=== PATIENT | female | born 1960 | race Caucasian/White ===

== ENCOUNTER 2023-12-15 21:56 | Emergency (ER) | payer OTHER, SELFPAY ==
[2023-12-15 21:58] VITALS: BP 127/88
[2023-12-15 22:29] VITALS: BP 127/82
[2023-12-15 23:00] VITALS: BP 115/74
--- NOTE | 2023-12-15 23:00 | ED.GENMED ---
History of Present Illness
General
Chief Complaint: Abdominal Symptoms
Source: patient, previous radiology exam (Echocardiogram June 2023 showing normal EF, evidence of mitral valve repair.) and previous hospital records (Cardioversion for A-fib/flutter September 2022.)
Exam Limitations: none
Time Seen by Provider: 12/15/23 22:39
Nursing documentation reviewed up to this point in time: agreed with
Travel History
Have you had any contact with someone who has COVID-19?: No
Do you have any symptoms of coronavirus? Fever > 100 degrees, chills, cough, shortness of breath, sore throat, loss of taste or smell, muscle aches, or headache?: No
History of Present Illness
History of Present Illness:
This is a 63-year-old woman who has history of paroxysmal atrial fibrillation maintained on metoprolol and Eliquis. History of mitral regurgitation status post mitral repair 2021. She also has history of chronic diastolic CHF maintained on Lasix
20 mg daily. History of anemia, maintained on oral iron tablets and history of anxiety, maintained on fluoxetine.
She presents with nasal congestion, chest congestion that has been ongoing for the past months, intermittent harsh cough occasionally productive of clear to pale yellow phlegm. She has not had a fever but overall has not been feeling well. She has
had sporadic brief nosebleeds and intermittent nausea with 1 episode of vomiting last week. She denies hematemesis. No hematochezia, denies black nor tarry stools. 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 She has had some dyspnea on exertion, worse over the past month but no chest pain, no palpitations,
no dizziness nor lightheadedness. She denies leg pain or swelling.
She does not weigh yourself daily but believes her weight has remained stable.
She has noticed some intermittent tingling of her finger tips, seems worse after an episode of coughing, worse with activity. No associated weakness nor pain.
Past History
Past History
ED Past Medical History: Arrthythmia (Paroxysmal atrial fibrillation), CHF (Chronic diastolic CHF), HTN, Valvular disease (Mitral valve regurgitation-status post mitral valve repair March 2022), Psychiatric (Anxiety), Other (Right upper lobe lung
nodule 1.8 cm) and Other (Iron deficiency anemia)
ED Past Surgical History: Cardiac (Mitral valve regurgitation repair March 2022. A-fib cardioversion September 2022 ) and Cholecystectomy
Social History
Tobacco: Non-smoker
Alcohol: None
Drug: None
Living: with family
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
Family History
Family History: Other (Noncontributory); Negative Early CAD
Phy Exam
Physical Exam
Physical Exam:
GENERAL: 63-year-old woman appears younger than stated age, bright and alert, pleasant, appears in no acute distress. Intermittent harsh nonproductive cough is noted. Able to speak in full sentences. Afebrile.
EYE: anicteric
NECK: Supple, nontender, no meningismus, no significant adenopathy.
ENT: posterior pharynx is without injection or edema, there is mild postnasal drip noted, oral mucosa is moist. Lips are mildly dry. TMs obscured by cerumen bilaterally. Nares have moderately boggy injected turbinates, scant pearly mucopus, no
blood nor evidence of recent epistaxis.
CARDIAC: Regular rhythm, mildly tachycardic. no murmur.
LUNGS: no acute respiratory distress, scant rales left base otherwise clear to auscultation.
ABDOMEN: Soft, nondistended, without focal tenderness, normoactive BS.
NEUROLOGICAL: Alert and oriented x3, no focal neuro deficits. Motor strength is 5/5 bilaterally. Gross sensation is intact.
SKIN: Warm and dry, normal color, skin intact. No rash.
MUSCULOSKELETAL: No C/C/E. peripheral pulses are full and equal b/l. No palpable tenderness.
PSYCH: Normal and appropriate interaction.
Scores
Heart Failure Risk
Heart Failure Risk Score: Yes
History of Stroke or TIA: No
History of intubation for respiratory distress: No
Heart rate on ED arrival >/= 110: Yes
SaO2 <90% on arrival on room air: No
HR >/=110 during 3min walk test (or too ill to perform test): Yes
ECG has acute ischemic changes: No
Urea >/=12mmol/L (BUN 33.6mg/dL): No
Serum CO2>/=35mmol/L: No
Troponin I or T elevated to NH Level (0.4mg/dL): No
NT-proBNP >/=5,000ng/L (5,000pg/ml): No
HF Risk Score: 2
Admission Status: MEDIUM RISK 9.2% Consider observation or discharge to home with homecare & f/u visit to PCP/Blood Donor Recruiter Supervisor, or SNF for treatment
Course
Orders/Labs/Results
Orders:
Orders
12/15/23 22:57
Electrocardiogram (*1) Urgent
Reason for Study: Shortness of Breath
EKG- Treatment ONCE
CR Chest - 2 Views Urgent
Comment:
Reason For Exam: cough, SOB x 1 month
12/15/23 23:17
COVID-19 Antigen Urgent
Source: Nasal Swab
Complete Blood Count/With Diff Urgent
Comprehensive Metabolic Panel Urgent
Magnesium Urgent
NT-proBNP Urgent
TSH Reflex To Free T4 Urgent
Troponin I Urgent
12/15/23 23:52
Electrocardiogram (*1) Urgent
Reason for Study: Shortness of Breath
12/15/23 23:53
EKG- Treatment ONCE
12/16/23 01:13
Furosemide [Lasix] 40 mg IV NOW STA
12/16/23 01:25
Procalcitonin Urgent
PCT Algorithmm Indication: Respiratory
Abnormal Lab Results
12/15/23
23:17
WBC 4.1 L 10^3/uL
(4.8-10.8)
RBC 4.04 L 10^6/uL
(4.20-5.40)
Hgb 11.7 L g/dL
(12.0-16.0)
Hct 33.3 L %
(37.0-47.0)
Absolute Lymphs (auto) 0.7 L 10^3/uL
(1.2-3.4)
Neutrophils % 76.0 H %
(42.2-75.2)
Lymphocytes % 16.8 L %
(20.5-51.1)
BUN 20 H mg/dl
(7-17)
Glucose 134 H mg/dl
(70-99)
12/15/23 23:17
12/15/23 23:17
Vital Signs
Initial and Last Documented VS:
Initial Vital Signs
Temp Pulse Resp BP Pulse Ox
97.7 F 116 16 127/88 100
12/15/23 21:58 12/15/23 21:58 12/15/23 21:58 12/15/23 21:58 12/15/23 21:58
Last Documented Vital Signs
Temp Pulse Resp BP Pulse Ox
97.7 F 120 17 131/91 96
12/15/23 21:58 12/16/23 02:00 12/16/23 02:00 12/16/23 02:00 12/16/23 02:00
MDM/Problems Addressed
Differential Diagnosis Includes:
Concern for sinusitis, bronchitis, pneumonia. Patient is noted to be mildly tachycardic on exam thus concern for recurrent PAF/atrial tachycardia, CHF, symptomatic anemia.
She has been compliant with twice daily Eliquis, no prior history of thromboembolism, no leg pain or swelling thus PE is unlikely.
Will check EKG, labs including BNP, troponin, TSH. Will check chest x-ray.
Chronic conditions affecting care: HTN, Arrhythmia (PAF) and Other (Chronic diastolic CHF; Anemia)
*Radiology
Radiology exam reviewed: preliminary read by ED provider (Chest x-ray shows increased interstitial markings concerning for mild CHF. Stable appearing rounded nodule right upper lobe. Atelectasis left posterior lower lobe.)
*Pulse Oximetry
Patient hypoxic: no
*EKG
Interpreted by ED Provider?: Yes
Interpretation: abnormal
Comparison EKG: changes noted (Atrial fibrillation with rapid ventricular response has replaced sinus rhythm on EKG September 27, 2022.)
Rate: tachycardiac
Rhythm: a-fib
Owen: left axis deviation
Interval: long QT
QRS Pattern: normal QRS
Ischemia: non-specific ST changes
*Time Broker Interpretation
Rate: tachycardiac
Interpretation: abnormal
Rhythm: a-fib and other (Atrial fibrillation has spontaneously converted to normal sinus rhythm shortly after patient placed on nurse monitoring. There is intermittent PACs, brief runs of atrial tachycardia.)
*Critical Care Note
Total Time (30-74mins, 75-104mins- exclusive of procedures): Not Applicable
Update Note
Update Note:
EKG shows atrial fibrillation with rapid ventricular response at 120. Shortly after EKG completed however monitor shows normal sinus rhythm and repeat EKG shows normal sinus rhythm at a rate of 71, flipped T waves anterolaterally. The flipped T
waves are new compared to previous EKG September 2022.
Monitor continues to show intermittent A-fib with spontaneous conversion to normal sinus rhythm. Patient remains asymptomatic without palpitations nor sense of her heart beating rapidly.
Labs show mild neutropenia with white blood cell count of 4.1 which is actually improved from previous. Mild anemia with hemoglobin of 11.7 which is improved from previous.
Chemistries are unremarkable. Troponin is negative.
BNP is markedly elevated at 2800, much higher than previous results of 900-1980.
Chest x-ray shows some mild interstitial fullness bilaterally concerning for mild to moderate CHF. There is what appears to be linear atelectasis left lower lobe posteriorly. There is a stable appearing rounded nodule right upper lobe.
With intermittent PAF, dyspnea on exertion, elevated BNP I have significant concern for acute CHF as cause for patient's symptoms.
Will give an IV dose of Lasix now and will check procalcitonin for completeness sake. Linear atelectasis left base does not appear pneumonic process but will check procalcitonin.
12/16/2023 0235 AM
Patient diuresing well, ambulating to and from the bathroom without difficulty. States she is already feeling better.
Procalcitonin is negative.
I suspect her intermittent cough, dyspnea on exertion is all CHF related.
Monitor does continue to show intermittent A-fib versus atrial tachycardia with rapid ventricular response at 120, with spontaneous conversion back to normal sinus rhythm.
She remains hemodynamically stable.
Will continue to observe for another hour then plan for 3-minute walk test and if asymptomatic we will plan to discharge to home with prompt follow-up with cardiology/[facility] cardiology.
I have notified [facility] pin or clip fastener on-call, Dr. Loo who agrees with this plan.
Patient recommended to increase her Lasix over the next 2 days from 20 to 40 mg daily.
Will discharge with [facility]/heart failure instructions.
Return precautions discussed.
ED Attending Note
-
Portions of this chart may have been created with voice recognition software.� Occasional wrong word or��sound alike� substitutions may have occurred due to the inherent limitations of voice recognition software.
Discharge Plan
Departure
Patient Disposition: Home (Routine Discharge)
Date of Disposition: 12/16/23
Time of Disposition: 02:30
Patient with high blood pressure during this ER visit?: No
Condition: Good
Discharge Problem:
Paroxysmal atrial fibrillation with RVR, Acute on chronic diastolic CHF (congestive heart failure)
Instructions: *[facility] Heart Failure Instructions
Prescriptions:
No Action
fluoxetine 20 MG capsule
40 mg PO DAILY
Eliquis 5 mg Tablet
5 mg PO BID
ferrous sulfate [FeroSul] 325 MG tablet
325 mg PO DAILY Qty: 1 0RF
metoprolol tartrate 25 mg Tablet
25 mg PO BID
multivit with min-folic acid [Multivitamin Gummies] 200 mcg Tablet,Chewable
2 tab PO DAILY
furosemide 20 mg Tablet
20 mg PO DAILY
Referrals:
Andry Danielle DO [Family Provider] -
Raul Cardozo MD [Active] - Next open appointment
Activity Restrictions/Additional Instructions:
Over the next 2 days, increase your furosemide to 40 mg daily.
Continue Eliquis and metoprolol at current doses.
You should receive a phone call from Dr Cardozo office on Monday to schedule a prompt follow up this week.
Interventions
Interventions:
*Risk Screen - Suicide Last Done: 12/15/23 21:58
*General Assessment Last Done: 12/15/23 21:58
*Neglect/Abuse Screening Last Done: 12/15/23 21:58
ED- Fall Risk Assessment Last Done: 12/15/23 22:31
*ED COVID-19 Vaccine History Last Done: 12/15/23 22:31
ZM-Yjrpve-Fyjtwmwiki Assessment Last Done: 12/15/23 22:30
Discharge Date and Time
Print Language: CONGOLESE
[2023-12-15 23:36] LABS: % Basophils 0.2 % (0-2); % Eosinophils 0.2 % (0-6); % Immature Granulocytes 0.2 % (0-0.5); % Lymphocytes 16.8 % (20.5-51.1); % Monocytes 6.6 % (1.7-9.3); Absolute Lymphocytes 0.7 10^3/uL (1.2-3.4); Absolute Monocytes 0.3 10^3/uL (0.1-0.6); Absolute Neutrophils 3.1 10^3/uL (1.4-6.5); Hematocrit 33.3 % (37.0-47.0); Hemoglobin 11.7 g/dL (12.0-16.0); Mean Corp Hgb Conc. 35.1 g/dL (33.0-37.0); Mean Corpuscular Volume 82.4 fL (81.0-99.0); Mean Platelet Volume 8.8 fL (7.4-10.4); Nucleated Red Blood Cells % 0 %; Platelet Count 133 10^3/uL (130-400); Red Blood Cell Count 4.04 10^6/uL (4.20-5.40); Red Cell Dist. Width 13.7 % (11.5-14.5); White Blood Cell Count 4.1 10^3/uL (4.8-10.8)
[2023-12-15 23:52] LABS: COVID-19 Antigen Negative (Negative)
[2023-12-16] VITALS: BP 126/65
[2023-12-16 00:01] LABS: NT-proBNP 2800 pg/ml; Troponin I < 0.012 ng/ml
[2023-12-16 00:14] LABS: ALT (SGPT) 24 U/L (0-35); AST (SGOT) 23 U/L (14-36); Albumin 4.2 g/dl (3.5-5.0); Alkaline Phosphatase 101 U/L (38-126); Blood Urea Nitrogen 20 mg/dl (7-17); Calcium 9.4 mg/dl (8.4-10.2); Carbon Dioxide 27 mmol/L (22-30); Chloride 101 mmol/L (98-107); Glucose 134 mg/dl (70-99); Magnesium 1.8 mg/dl (1.6-2.3); Potassium 3.7 mmol/L (3.5-5.1); Sodium 140 mmol/L (135-145); Total Bilirubin 0.7 mg/dl (0.2-1.3); Total Protein 6.9 g/dl (6.3-8.2); eGFR > 60.00
[2023-12-16 00:24] LABS: TSH Reflex To Free T4 1.68 uIU/ml (0.47-4.68)
[2023-12-16 01:03] VITALS: BMI 25.7
[2023-12-16 01:26] VITALS: BP 129/79
[2023-12-16] MEDS: LASIX 40 MG IV (01:26)
[2023-12-16 02:00] VITALS: BP 131/91
[2023-12-16 02:06] LABS: Procalcitonin < 0.05 ng/ml (0.0-0.25)
[2023-12-16 03:00] VITALS: BP 129/79
== END 2023-12-16 04:03 | disposition home or self-care (01) ==
LOC: EMR 21:56
PROVIDERS: EMERGENCY PHYSICIAN Emergency Medicine; FAMILY PHYSICIAN Family Medicine
DX: I48.0 Paroxysmal atrial fibrillation (principal); I50.33 Acute on chronic diastolic (congestive) heart failure; Z79.01 Long term (current) use of anticoagulants
CPT/HCPCS: 99285; 96374; 71046; 80053; 83735; 83880; 84145; 84443; 84484; 85025; 87811; 93005

== ENCOUNTER 2024-01-07 09:22 | Inpatient (IN) | payer OTHER, SELFPAY ==
[2024-01-05 20:56] VITALS: BP 137/96
[2024-01-05 21:24] LABS: Absolute Lymphocytes 0.3 10^3/uL (1.2-3.4); Absolute Monocytes 0.3 10^3/uL (0.1-0.6); Absolute Neutrophils 1.6 10^3/uL (1.4-6.5); Hematocrit 34.2 % (37.0-47.0); Mean Corp Hgb Conc. 35.1 g/dL (33.0-37.0); Mean Corpuscular Hgb 29.3 pg (27.0-31.0); Mean Corpuscular Volume 83.4 fL (81.0-99.0); Mean Platelet Volume 8.7 fL (7.4-10.4); Nucleated Red Blood Cells % 0 %; Platelet Count 123 10^3/uL (130-400); Red Cell Dist. Width 14.6 % (11.5-14.5)
[2024-01-05 21:37] LABS: ALT (SGPT) 28 U/L (0-35); AST (SGOT) 34 U/L (14-36); Albumin 4.6 g/dl (3.5-5.0); Alkaline Phosphatase 90 U/L (38-126); Blood Urea Nitrogen 20 mg/dl (7-17); Calcium 8.8 mg/dl (8.4-10.2); Carbon Dioxide 31 mmol/L (22-30); Chloride 95 mmol/L (98-107); Glucose 137 mg/dl (70-99); Potassium 3.8 mmol/L (3.5-5.1); Sodium 132 mmol/L (135-145); Total Bilirubin 0.7 mg/dl (0.2-1.3); Total Protein 7.6 g/dl (6.3-8.2); eGFR > 60.00
[2024-01-05 21:44] LABS: COVID-19 Antigen Negative (Negative)
[2024-01-05 22:01] LABS: % Basophils 0.5 % (0-2); % Eosinophils 0.5 % (0-6); % Lymphocytes 14.2 % (20.5-51.1); % Monocytes 13.3 % (1.7-9.3); % Neutrophils 71.5 % (42.2-75.2)
--- NOTE | 2024-01-05 22:03 | ED.GENMED ---
History of Present Illness
General
Chief Complaint: Cold/Flu/URI Symptoms
Source: patient and records
Time Seen by Provider: 01/05/24 21:36
Travel History
Have you had any contact with someone who has COVID-19?: No
Do you have any symptoms of coronavirus? Fever > 100 degrees, chills, cough, shortness of breath, sore throat, loss of taste or smell, muscle aches, or headache?: Yes
Symptoms:: see above
History of Present Illness
History of Present Illness:
63-year-old female with past medical history of atrial fibrillation, mitral valve repair presenting to the emergency department for evaluation of multitude of symptoms including bilateral hand paresthesia, nausea, chest congestion, fatigue, mild
shortness of breath, lack of appetite and difficulty concentrating. Symptoms all started yesterday but seem to be a little bit worse this evening which caused patient to have to leave work and decided to come to the ER for further evaluation.
Patient notes that she was in this emergency department towards the end of November where she was treated for atrial fibrillation and CHF exacerbation but was discharged home on medications which she reports taking as directed. She denies any known
fevers, chills, rigors, known sick contacts, recent travel or recent antibiotics. No changes to her medications recently. Patient does report she takes her 5 mg Eliquis and 25 mg metoprolol p.o. twice daily daily without missing any dosages. She
did not take this evening's dose as she normally notes that she does this after work when she gets home but came straight here from her job.
Past History
Past History
ED Past Medical History: Arrthythmia (Paroxysmal atrial fibrillation), CHF (Chronic diastolic CHF), HTN, Valvular disease (Mitral valve regurgitation-status post mitral valve repair March 2022), Psychiatric (Anxiety), Other (Right upper lobe lung
nodule 1.8 cm) and Other (Iron deficiency anemia)
ED Past Surgical History: Cardiac (Mitral valve regurgitation repair March 2022. A-fib cardioversion September 2022 ) and Cholecystectomy
Social History
Tobacco: Non-smoker
Alcohol: None
Drug: None
Personal: Single
Living: with family
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
Family History
Family History: Other (Noncontributory); Negative Early CAD
Review of Systems
Review of Systems
All Other Systems: ROS reviewed and negative except as documented in HPI and ROS
Phy Exam
Physical Exam
Physical Exam:
GENERAL: Alert , in no apparent distress
EYE: Clear conjunctiva
NECK: Supple
ENT: o/p clr, mmm.
CARDIAC: Tachycardic rate and rhythm, occasional PVC on telemetry
LUNGS: Clear breath sounds bilaterally, no acute respiratory distress, no wheezes/rales/rhonchi
ABDOMEN: Soft, without focal tenderness, no r/g, no cvat
NEUROLOGICAL: Alert and oriented
SKIN: Warm and dry, skin intact.
MUSCULOSKELETAL: No edema, well perfused.
PSYCH: Normal and appropriate interaction.
Scores
Heart Failure Risk
Heart Failure Risk Score: Not Applicable
Heart Score for Chest Pain Patients
STEMI patient?: Not applicable
Withdrawal Assessment of Alcohol
Withdrawal Assessment Completed?: Not applicable
Course
Orders/Labs/Results
Orders:
Orders
01/05/24 21:00
ECG [Electrocardiogram (*1)] Urgent
Reason for Study: Bradycardia / Tachycardia
EKG- Treatment ONCE
01/05/24 21:15
COVID-19 Antigen Urgent
Source: Nasal Swab
Complete Blood Count/With Diff Urgent
Comprehensive Metabolic Panel Urgent
TSH Urgent
Comment: ADD ON
Influenza A+B Rapid Molecular Urgent
MELVINA Source: Nasal Swab
Specimen Description:
01/05/24 21:47
Add On- LAB Urgent
Tests Added?: troponin, TSH
Electrocardiogram (*1) Urgent
Reason for Study: Tachycardia
EKG- Treatment ONCE
Metoprolol [Lopressor] 50 mg PO NOW STA
01/05/24 22:02
Add On- LAB Urgent
Tests Added?: bnp
01/05/24 22:03
Metoprolol [Lopressor] 5 mg IV NOW STA
01/05/24 22:10
NT-proBNP Urgent
Comment: ADD ON
Troponin I Urgent
Comment: COLLECT. NO GREEN TOP IN LAB
01/05/24 23:02
Metoprolol [Lopressor] 5 mg IV NOW STA
01/05/24 23:03
Metoprolol [Lopressor] 50 mg PO NOW STA
01/06/24 01:42
Admit/Transfer Patient As Directed
Co-Sign Provider:
Level of Care: Observation services
Assign to:: Telemetry
Physician / Group: Vinicio
Diagnosis: Paroxysmal SVT, CHF
Reason for Telemetry: Arrhythmia
Date to Stop Telemetry: 01/09/24
Time to Stop Telemetry: 11:00
Reason for Hospitalization: Paroxysmal SVT, CHF
01/06/24 01:48
Code Status As Directed
Resuscitation Status: Full Code
01/06/24 01:52
Furosemide [Lasix] 40 mg IV NOW STA
01/06/24 03:01
Acetaminophen [Tylenol] 1,000 mg .ROUTE .STK-MED ONE
01/06/24 03:25
Acetaminophen [Tylenol] 650 mg PO NOW STA
01/06/24 04:34
Acetaminophen [Tylenol] 650 mg PO Q4HPRN PRN
01/06/24 04:34
CARDIOLOGY CONSULT Routine
Consulting Provider: Jabari Tobin
Was physician already notified: No
Reason for consult: SVT, CHF
Consult Notification Routine
Specialty to Notify: Cardiology
Date consulting provider notified: 01/06/24
Time consulting provider notified: 06:25
Notified:: Provider
Comment: Dr Tobin aware via tiger text
Activity As Directed
Activity Level: Ambulate
EKG with chest pain [ECG as needed] As Directed
ECG as needed for:: Chest Pain
I/O [Intake/ Output] As Directed
Frequency: Per unit guidelines
Orthostatic Vital Signs As Directed
Orthostatic VS Frequency: BID
Vital Signs As Directed
Frequency: Per unit guidelines
Weight As Directed
Frequency: Daily
Oxygen Therapy [O2 Therapy] [RESP] Routine
Titrate/Wean O2 to maintain O2 sat greater than (%): 94
01/06/24 04:37
Basic Metabolic Panel IN AM
Complete Blood Count/No Diff IN AM
01/06/24 06:00
EKG [Electrocardiogram (*1)] IN AM
Reason for Study: Chest Pain
Cholesterol Lowering
At Your Request: Full Participation
Does patient need a safe tray?: No
01/06/24 06:38
Potassium Chloride [KCl] 40 meq PO NOW STA
01/06/24 08:00
Apixaban [Eliquis] 5 mg PO BID
Diltiazem Extended Release [Cardizem Cd] 120 mg PO DAILY
Fluoxetine HCl [Prozac] 40 mg PO DAILY
Furosemide [Lasix] 40 mg PO DAILY
Metoprolol [Lopressor] 25 mg PO BID
01/06/24 09:44
Potassium Chloride [KCl] 40 meq PO NOW STA
01/07/24
CR Chest - 2 Views Routine
Comment:
Reason For Exam: fever
01/07/24 04:36
Complete Blood Count/No Diff IN AM
Comprehensive Metabolic Panel IN AM
Magnesium IN AM
01/07/24 Breakfast
Regular
At Your Request: Full Participation
Does patient need a safe tray?: No
Fluid Restriction: 1440 mL/day (48 oz)
01/08/24
Echo 2D MMode Color/Doppler Routine
Reason for Study: CHF
01/09/24 11:00
DC Protocol for Telemetry ONCE
Abnormal Lab Results
01/05/24 01/06/24 01/07/24
21:15 04:37 04:36
WBC 2.2 L* 10^3/uL 2.2 L* 10^3/uL 1.8 L* 10^3/uL
(4.8-10.8) (4.8-10.8) (4.8-10.8)
RBC 4.10 L 10^6/uL 3.87 L 10^6/uL 4.13 L 10^6/uL
(4.20-5.40) (4.20-5.40) (4.20-5.40)
Hgb 11.3 L g/dL
(12.0-16.0)
Hct 34.2 L % 32.5 L % 34.6 L %
(37.0-47.0) (37.0-47.0) (37.0-47.0)
RDW 14.6 H % 14.6 H % 14.6 H %
(11.5-14.5) (11.5-14.5) (11.5-14.5)
Plt Count 123 L 10^3/uL
(130-400)
Absolute Lymphs (auto) 0.3 L 10^3/uL
(1.2-3.4)
Lymphocytes % 14.2 L %
(20.5-51.1)
Monocytes % 13.3 H %
(1.7-9.3)
Sodium 132 L mmol/L 133 L mmol/L 134 L mmol/L
(135-145) (135-145) (135-145)
Potassium 3.1 L mmol/L
(3.5-5.1)
Chloride 95 L mmol/L
(98-107)
Carbon Dioxide 31 H mmol/L
(22-30)
BUN 20 H mg/dl 23 H mg/dl 18 H mg/dl
(7-17) (7-17) (7-17)
Glucose 137 H mg/dl 121 H mg/dl 128 H mg/dl
(70-99) (70-99) (70-99)
01/07/24 04:36
01/07/24 04:36
Vital Signs
Initial and Last Documented VS:
Initial Vital Signs
Temp Pulse Resp BP Pulse Ox
98.5 F 127 22 137/96 98
01/05/24 20:56 01/05/24 20:56 01/05/24 20:56 01/05/24 20:56 01/05/24 20:56
Last Documented Vital Signs
Temp Pulse Resp BP Pulse Ox
98.1 F 77 12 118/77 93
01/09/24 07:19 01/09/24 07:21 01/09/24 07:19 01/09/24 07:21 01/09/24 07:19
Doctor Naturopathic consulted with Physician
Doctor Naturopathic consulted with physician?: Yes
Name of Physician Consulted: Lula
MDM/Problems Addressed
Differential Diagnosis Includes:
Cardiac dysrhythmia, valvular dysfunction, electrolyte disturbance, viral etiology
MDM/Problems Addressed:
63-year-old female presenting emergency department for evaluation of multitude of symptoms ongoing since yesterday, worse while at work prompting her to come to the emergency department. Triage vital signs of tachycardia noted however patient's EKG
done in triage is a normal sinus rhythm. During my exam patient's tachycardia remained and she was put on the location director which appeared to be a cardiac rhythm at regular intervals with occasional PVCs. Repeat EKG was done due to the
tachycardia which shows a junctional rhythm at a rate of 122 bpm. There is left axis deviation which is unchanged from previous EKG. I do suspect this could be a potential cause for patient's symptoms. Will treat with 5 mg of Lopressor IV. Lab
work is pending.
Chronic conditions affecting care: Arrhythmia
Acute Exacerbation and/or Progression of Chronic Illness: Arrhythmia
*Radiology
Radiology exam reviewed: preliminary read by ED provider (no pulmonary edema/pleural effusion)
*Pulse Oximetry
Patient hypoxic: no
*EKG
Interpreted by ED Provider?: Yes
Heart Rate: 80
Rate: normal
Rhythm: sinus
Siren: left axis deviation
Interval: long QT
Ischemia: non-specific ST changes
*Chief Commercial Officer Interpretation
Rate: tachycardiac
Rhythm: junctional
*Critical Care Note
Total Time (30-74mins, 75-104mins- exclusive of procedures): Not Applicable
Data Reviewed
Review of Other/Old Records Reveals: Labs, Records and Testing
Source: patient and records
Comment
Comment:
11:10 PM: Following the 5 mg Lopressor IV patient's heart rate remains around 118 bpm. She will have intermittent 10 to 15 seconds of going back into a normal sinus rhythm but goes back again into a accelerated junctional rhythm. Patient's lab
work all appears to be baseline. I do suspect her abnormal rhythm to be the likely cause of her current symptoms. Will treat with an additional 50 mg of p.o. and observe to see if this controls the heart rate better. If she remains tachycardic
will consider admission for cardiology evaluation in the morning.
Patient Management
Discussion with other providers: Hospitalist
Escalation/DeEscalation of care consider admission/obs:
12:05 AM: Patient remains tachycardic despite additional metoprolol. She continues to go in and out of a junctional rhythm and back into a sinus rhythm with junctional rhythm being the overriding rhythm. Due to patient's cardiac history will admit
for further evaluation and cardiology consultation. Hospitalist team accepts for continued evaluation and treatment
ED Attending Note
-
Portions of this chart may have been created with voice recognition software.� Occasional wrong word or��sound alike� substitutions may have occurred due to the inherent limitations of voice recognition software.
Discharge Plan
Departure
Patient Disposition: Admit
Date of Disposition: 01/06/24
Time of Disposition: 00:12
Presentation/result/management discussed w/ accepting MD/DO: Hospitalist
Discharge Problem:
Junctional tachycardia
Interventions
Interventions:
*Risk Screen - Suicide Last Done: 01/05/24 20:56
*General Assessment Last Done: 01/05/24 20:56
*Neglect/Abuse Screening Last Done: 01/05/24 20:56
ED- Fall Risk Assessment Last Done: 01/05/24 22:45
*ED COVID-19 Vaccine History Last Done: 01/05/24 22:45
*Nursing Disposition Last Done: 01/06/24 04:30
ED- Pulmonary Assessment Last Done: 01/06/24 01:44
Discharge Date and Time
Discharge Date/Time: 01/06/24 04:34
[2024-01-05 22:06] LABS: White Blood Cell Count 2.2 10^3/uL (4.8-10.8)
[2024-01-05] MEDS: LOPRESSOR 5 MG IV (22:14)
[2024-01-05 22:36] LABS: TSH 1.06 uIU/ml (0.47-4.68)
[2024-01-05 22:40] LABS: NT-proBNP 1070 pg/ml; Troponin I < 0.012 ng/ml
[2024-01-05 23:00] VITALS: BP 135/88
[2024-01-05] MEDS: LOPRESSOR 50 MG PO (23:17)
[2024-01-06] VITALS (15 sets, daily range): BP systolic 100–154; BP diastolic 59–97; PULSE 66–105
--- NOTE | 2024-01-06 01:53 | HPS.HSE ---
Family Physician
-
Family Physician: Andry Danielle
Chief Complaint
-
Congestion, SOB
History of Present Illness
Patient is a 63y F with PMH significant for mitral valve repair, paroxysmal A-Fib and paroxysmal SVT who presents to ED complaining of nasal and chest congestion, fatigue and SOB. Patient states that she developed these symptoms starting
yesterday evening and they have progressed over the past day or so. Patient had similar symptoms a few weeks ago and was seen in the ED here on 12/15/23. At that time she was noted to have paroxysms of SVT into the 120-140 range. She was also
noted to be in mild CHF and was treated with a dose of IV Lasix. This resulted in improvement in her symptoms of 'congestion'. Her outpatient Lasix dose was increased from 20mg daily to 40mg daily. She states that her weight has remained fairly
stable since that time.
Patient was seen by Cardiology for evaluation after that ED stay and is scheduled for EP evaluation and possible ablation in February.
She presented to the ED this evening with recurrent symptoms.
Note: Patient does state that she took some OTC cold medication with a 'decongestant' earlier today to attempt to alleviate her nasal / chest symptoms.
Medical History
Past Medical History
Past Medical History: Reports Other
Additional Past Medical History:
Mitral Regurgitation
Paroxysmal Atrial Fibrillation
Paroxysmal SVT
Chronic HFpEF
Iron Deficiency Anemia
Past Surgical History: Reports Other
Additional Past Surgical History:
Mitral Valve Repair with MAZE procedure and AtriClip placement (2021)
Bilateral Breast Augmentation
Abdominoplasty
Cholecystectomy
Social History
Tobacco: Former Smoker (Quit smoking 30 years ago. Approx 20 pack years total use.)
Alcohol: None
Drug: None
Family History
Family History: Not pertinent
Allergies / Home Medications
Allergies reflects when Allergies were last updated in [employer].
Home Medications with original date entered in [employer]
Allergy/Medication List:
Allergies
Allergy/AdvReac Type Severity Reaction Status Date / Time
No Known Allergies Allergy Verified 01/05/24 20:55
Home Medications
fluoxetine 20 mg capsule 40 mg PO DAILY Mental Health/Anxiety 02/28/22
apixaban 5 mg tablet (Eliquis) 5 mg PO BID Blood clot prevention/tx 03/28/22
ferrous sulfate 325 mg (65 mg iron) tablet (FeroSul) 325 mg PO DAILY Supplement #1 tab 04/18/22
metoprolol tartrate 25 mg tablet 25 mg PO BID 09/27/22
multivitamin with minerals-folic acid 200 mcg chewable tablet (Multivitamin Gummies) 2 tab PO DAILY 09/27/22
furosemide 20 mg tablet 40 mg PO DAILY 12/16/23
Review of Systems
-
History Source: Patient
A 12 point ROS was completed and negative except as noted: Yes
Constitutional: Reports Fatigue; Denies Fever or Chills
EENT: Reports Other (Nasal / sinus congestion); Denies Sore Throat
Respiratory: Reports Cough and Trouble Breathing; Denies Hemoptysis
Cardiac: Denies Chest Pain, Diaphoresis or Palpitations
Abdomen/GI: Denies Abdominal Pain, Nausea, Vomiting or Diarrhea
: Denies Dysuria or Frequency
Musculoskeletal: Denies Joint Pain or Edema
Neurological: Reports Headache; Denies Dizzy
Psych: Denies Depression or Anxiety
Physical Exam
Vital Signs
Vital Signs
Temp Pulse Resp BP Pulse Ox
99.4 F 112 26 127/67 94
01/06/24 01:29 01/06/24 01:29 01/06/24 01:29 01/06/24 01:29 01/06/24 01:44
Physical Exam
General: Other (63y F appears younger than stated age. No acute distress.)
HEENT: Moist mucous membranes and PERRLA
Respiratory: Other (Bibasilar rales about 1/2 up. No wheeze / rhonchi.)
Cardiac: S1/S2 and Regular Rhythm; No Murmur
GI: Soft, Non Tender, Non Distended and Normal Bowel Sounds
Musculoskeletal: No Clubbing, No Cyanosis and No Edema
Neuro: AO x 3
Laboratory Results
-
01/05/24 21:15
01/05/24 21:15
Laboratory Results
Total Bilirubin 0.7 mg/dl (0.2-1.3) 01/05/24 21:15
AST 34 U/L (14-36) 01/05/24 21:15
ALT 28 U/L (0-35) 01/05/24 21:15
Alkaline Phosphatase 90 U/L (38-126) 01/05/24 21:15
Troponin I < 0.012 ng/ml 01/05/24 22:10
Impression/Plan
-
A/P: Patient is a 63y F with PMH significant for paroxysmal SVT, CHF and prior MV repair who presents to ED complaining of congestion and SOB.
Paroxysmal SVT
- Observe overnight for further evaluation and treatment.
- In the ED, patient having paroxysms of SVT with rates into the 120s. Alternately in sinus rhythm in the 70-80 range.
- Received multiple doses of metoprolol in the ED - will resume usual BID dosing moving forward.
- Cardiology evaluation - patient slated for EP eval / possible ablation in February.
- Patient counseled to avoid OTC cold medications, decongestants, etc in the future.
Acute on Chronic HFpEF
History of Mitral Valve Repair
- Patient's symptoms of chest congestion, dry cough, etc seem secondary to volume / CHF.
- Previously improved promptly with IV Lasix dose.
- Will given IV Lasix x 1 now.
- Resume usual PO dose in the AM.
- Follow I/Os, daily weights, etc.
- Update Echo.
- Cardiology eval as noted above.
Paroxysmal Atrial Fibrillation
- s/p MAZE procedure during nikhil repair in 2021.
- Remains on OAC with Eliquis for stroke risk reduction.
- Also had AtriClip placed in 2021.
DVT Prophylaxis: On Eliquis
Code Status: Full
[2024-01-06] MEDS: LASIX 40 MG IV (03:05)
[2024-01-06] MEDS: TYLENOL 650 MG PO ×3 (03:32→19:53)
[2024-01-06 05:51] LABS: Hematocrit 32.5 % (37.0-47.0); Hemoglobin 11.3 g/dL (12.0-16.0); Mean Corp Hgb Conc. 34.8 g/dL (33.0-37.0); Mean Corpuscular Hgb 29.2 pg (27.0-31.0); Mean Platelet Volume 9.3 fL (7.4-10.4); Platelet Count 149 10^3/uL (130-400); Red Blood Cell Count 3.87 10^6/uL (4.20-5.40); Red Cell Dist. Width 14.6 % (11.5-14.5)
[2024-01-06 06:00] LABS: Blood Urea Nitrogen 23 mg/dl (7-17); Calcium 8.6 mg/dl (8.4-10.2); Carbon Dioxide 29 mmol/L (22-30); Chloride 98 mmol/L (98-107); Glucose 121 mg/dl (70-99); Potassium 3.1 mmol/L (3.5-5.1); Sodium 133 mmol/L (135-145); eGFR > 60.00
--- NOTE | 2024-01-06 06:12 | PTCARENOTE ---
Received from ED. NSR/ST. BP stable. Just placed on 2L d.t pox 87% intermittently. OOB to bathroom independently. Harsh cough persists. EKG/labs obtained.
[2024-01-06 06:36] LABS: White Blood Cell Count 2.2 10^3/uL (4.8-10.8)
--- NOTE | 2024-01-06 07:13 | CON.CAR ---
Consultation
Consultation Request
Date/Time Consultation Requested: January 06, 2024
Date/Time Consultation Performed: January 06, 2024
Requesting Provider: Hospitalist
Performing Provider: Mahad
Reason for Consultation: Congestive heart failure
Medical History
-
Chief Complaint: Congestive heart failure
History of Present Illness:
63-year-old female who is admitted with the usual, throat, and 'lung 'congestion for few days and she was sent home from work. She is admitted with an elevated BNP and dyspnea which is improved with diuresis. She has ongoing issues with paroxysmal
atrial tachyarrhythmias and recently had an EP consultation in our office with Dr. Villalta who is scheduled her for an SVT ablation February 17. She is having salvos of a mid to long RP tachycardia suggesting atrial tachycardia and periods of sinus
rhythm. Metoprolol is 25 mg twice daily currently and she diuresed over a liter on Lasix overnight. She maintains oral anticoagulation therapy. In 2021 she had a mitral valve repair, maze, and L AA clip.
Past Medical History
Past Medical History: Arrhythmias and Valvular Disease
Past Surgical History: Cardiac
Social History
Tobacco: Former Smoker
Alcohol: None
Drug: None
Personal: Other
Living: Other
Employment: Employed
Family History
Family History: Reviewed & Not Pertinent
Allergies / Home Medications
Allergy/AdvReac Type Severity Reaction Status Date / Time
No Known Allergies Allergy Verified 01/05/24 20:55
�Medication �Instructions �Recorded �Confirmed �Type
fluoxetine 20 mg capsule 40 mg PO DAILY Mental 02/28/22 01/06/24 History
Health/Anxiety
apixaban 5 mg tablet (Eliquis) 5 mg PO BID Blood clot 03/28/22 01/06/24 History
prevention/tx
ferrous sulfate 325 mg (65 mg 325 mg PO DAILY Supplement #1 tab 04/18/22 01/06/24 Rx
iron) tablet (FeroSul)
metoprolol tartrate 25 mg tablet 25 mg PO BID 09/27/22 01/06/24 History
multivitamin with minerals-folic 2 tab PO DAILY 09/27/22 01/06/24 History
acid 200 mcg chewable tablet
(Multivitamin Gummies)
furosemide 20 mg tablet 40 mg PO DAILY 12/16/23 01/06/24 History
Review of Systems
-
All other systems: Negative unless noted
Constitutional: Fatigue
Respiratory: Trouble Breathing
Cardiac: Palpitations
Physical Exam
Vital Signs
Temp Pulse Resp BP Pulse Ox
98.4 F 113 17 130/77 95
01/06/24 04:30 01/06/24 06:45 01/06/24 04:00 01/06/24 04:14 01/06/24 06:15
Lab Results
01/06/24 04:37
01/06/24 04:37
Troponin I < 0.012 ng/ml 01/05/24 22:10
Vvo-[id number] Pept 1070 pg/ml 01/05/24 22:10
Physical Exam
General: Well Developed and Well Nourished
HEENT: Normocephalic and Anicteric
Respiratory: Crackles and Non Labored Respirations
Cardiac: S1/S2, Regular Rhythm and Irregular Rhythm
Breast: Deferred by me
GI: Soft, Non Tender and Non Distended
Rectal: Deferred by Provider
Genito-urinary: Clear Urine
Musculoskeletal: No Clubbing and No Cyanosis
Skin: Warm and Dry
Neuro: Awake, Alert and Oriented
Hematologic/Lymphatic: No Lymphadenopathy
Psych: Calm
Impression / Plan
-
PCP: Dr. Andry Danielle
Cardiology: Dr. Cardozo
Heme/Onc: Dr. Anca Pitt at [place]
Impression:
Paroxysmal atrial tachyarrhythmia
Heart failure preserved ejection fraction acute
Status post MV repair and MAZE 04/13/22
Leukopenia
History of severe MR, eccentric jet of severe MR, severe prolapse of the posterior mitral leaflet, malcoaptation of the anterior and posterior leaflet with possible torn cord posterior leaflet by LIBAN 03/02/22
Nonobstructive CAD by cath 03/02/22
Paroxysmal Afib seen initially 03/25/22
Chronic Eliquis OAC started 03/25/22
Chronic HFpEF
RUL pulmonary nodule
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
Hypokalemia acute likely from diuresis
LIBAN 03/02/22: EF 65%, moderately dilated LA, no thrombus AMIE, moderately thickened mitral valve leaflets, severe prolapse of the posterior�mitral leaflet was present predominately at P2, malcoaptation of the
�anterior and posterior leaflet with a possible torn cord of the posterior leaflet, eccentric jet of severe mitral regurgitation.� Peak E wave velocity 1.7 m/sec.
2022 echocardiogram notes normal ejection fraction
Recommend:
-Agree with diuresis as you are given elevated BNP and examination consistent with mild congestive heart failure. It would be reasonable to repeat chest x-ray to compare to prior. Can consider repeat echocardiogram to assess for any change in
ejection fraction
-With regards to her arrhythmias she has a definitive plan for ablation February 17. In the interim she is still having frequent salvos of paroxysmal supraventricular tachycardia and would be reasonable to add a second agent whether that be another AV
isreal agent with calcium channel eladia or antiarrhythmic drug therapy. Given her acute heart failure and unknown ejection fraction I would be loath to initiate class Ic medication or sotalol and given her relative youth I am also reticent about
amiodarone use even in the short-term. Ultimately amiodarone can be used for short period of time for arrhythmia control until her procedure. I would suggest we try Cardizem 120 mg CD to see if this can help ameliorate her symptoms and pursue
diuresis as you are.
-Will be happy to follow with you
Data Reviewed
-
EKG: Tracing Personally Visualized and interpreted
Radiology: Image Personally Visualized and interpreted
Medical Tests (Nuc Med, Echo etc): Image Personally Visualized and interpreted
Labs: Labs Reviewed by me
Old Records: Reviewed
[2024-01-06] MEDS: PROZAC 40 MG PO (08:09)
[2024-01-06] MEDS: LASIX 40 MG PO (08:09)
[2024-01-06] MEDS: KCL 40 MEQ PO ×2 (08:09→09:55)
[2024-01-06] MEDS: LOPRESSOR 25 MG PO ×2 (08:10→19:52)
[2024-01-06] MEDS: ELIQUIS 5 MG PO ×2 (08:10→19:52)
[2024-01-06] MEDS: CARDIZEM CD 120 MG PO (08:10)
--- NOTE | 2024-01-06 09:45 | W.PN.HOSP.TC ---
Today's Communication/Plan
-
cont diuretics
watch rates/rhythm
replete K
follow mag
Assessment / Plan
Assessment / Plan
pt is a 63 year old female
Acute on Chronic HFpEF--likely exacerbated by rates/SVT (History of Mitral Valve Repair)--cont PO lasix--apprec cards--cont I/Os--Echo Monday
hypokalemia--pt on diuretic therapy--replete
Paroxysmal SVT--In the ED, patient having paroxysms of SVT with rates into the 120s--Alternately in sinus rhythm in the 70-80 range--Received multiple doses of metoprolol in the ED--apprec cards-- cardizem CD started, cont metoprolol BID
Paroxysmal Atrial Fibrillation--s/p MAZE procedure during nikhil repair in 2021--for ablation in February--Remains on OAC with Eliquis for stroke risk reduction--Also had AtriClip placed in 2021.
anxiety--cont fluoxetine
DVT Prophylaxis: On Eliquis
Code Status: Full
Anticipated Discharge: > 48 hours
Subjective/Interval History
-
Date of Service: January 06, 2024
pt feeling better--less SOB
Objective Data
-
Labs:
Laboratory Results
01/05/24 01/06/24
21:15 04:37
WBC 2.2 L* 2.2 L*
Hgb 11.3 L
Hct 32.5 L
Plt Count 149 D
Sodium 133 L
Potassium 3.1 L
Chloride 98
Carbon Dioxide 29
BUN 23 H
Creatinine 0.8
Glucose 121 H
Calcium 8.6
Vital Signs:
max temp for 24 hours
01/06/24
01:29
Temp 99.4 F
Vital Signs
Temp Pulse Resp BP Pulse Ox
98.7 F 113 18 130/77 2
01/06/24 07:00 01/06/24 06:45 01/06/24 07:00 01/06/24 04:14 01/06/24 07:00
I&O
01/05/24 01/06/24 01/07/24
06:59 06:59 06:59
Output Total 1250 / 1250
Balance -1250 / -1250
Review of Systems
-
All other systems: Reviewed and negative
Physical Exam
-
General: Well Developed, Well Nourished and No Apparent Distress
HEENT: Normocephalic and Atraumatic
Respiratory: Clear to Auscultation; Negative Wheezes, Rales or Rhonchi
Cardiac: Irregular Rhythm
GI: Soft, Nontender, Nondistended and Normal Bowel Sounds
Musculoskeletal: No Clubbing, No Cyanosis and No Edema
Neuro: Awake and Alert
Psych: Calm
--- NOTE | 2024-01-06 16:31 | PTCARENOTE ---
VSS and Assessment as documented. Pt without complaints except for mild nasal congestion/headache received with Tylenol. Amb in room, family at bedside most of day. No SVT
--- NOTE | 2024-01-06 19:41 | PTCARENOTE ---
NSR/ST. Temp >101 - tylenol given as ordered. Assessment per nursing flowsheet.
[2024-01-07] VITALS (11 sets, daily range): BP systolic 89–135; BP diastolic 48–90; PULSE 121–126; BMI 24.0
[2024-01-07 05:18] LABS: Hematocrit 34.6 % (37.0-47.0); Hemoglobin 12.1 g/dL (12.0-16.0); Mean Corpuscular Hgb 29.3 pg (27.0-31.0); Mean Corpuscular Volume 83.8 fL (81.0-99.0); Mean Platelet Volume 9.4 fL (7.4-10.4); Platelet Count 139 10^3/uL (130-400); Red Blood Cell Count 4.13 10^6/uL (4.20-5.40); Red Cell Dist. Width 14.6 % (11.5-14.5)
[2024-01-07 05:26] LABS: White Blood Cell Count 1.8 10^3/uL (4.8-10.8)
[2024-01-07 05:45] LABS: ALT (SGPT) 17 U/L (0-35); AST (SGOT) 26 U/L (14-36); Albumin 4.1 g/dl (3.5-5.0); Alkaline Phosphatase 83 U/L (38-126); Blood Urea Nitrogen 18 mg/dl (7-17); Calcium 9.3 mg/dl (8.4-10.2); Carbon Dioxide 27 mmol/L (22-30); Chloride 101 mmol/L (98-107); Estimated Creatinine Clearance 81 ml/min; Glucose 128 mg/dl (70-99); Magnesium 1.9 mg/dl (1.6-2.3); Sodium 134 mmol/L (135-145); Total Bilirubin 0.8 mg/dl (0.2-1.3); eGFR > 60.00
--- NOTE | 2024-01-07 09:15 | W.PN.HOSP.TC ---
Today's Communication/Plan
-
recheck CXR
plan for echo in AM--pt seemed surprised that she is staying overnight again....
Assessment / Plan
Assessment / Plan
pt is a 63 year old female
Acute on Chronic HFpEF--likely exacerbated by rates/SVT (History of Mitral Valve Repair)--cont PO lasix, maybe needs IV?--apprec cards--cont I/Os--Echo Monday
hypokalemia--pt on diuretic therapy--replete
leukopenia--unclear why--no signs of infection although did have temp overnight--will recheck CXR
Paroxysmal SVT--In the ED, patient having paroxysms of SVT with rates into the 120s--Alternately in sinus rhythm in the 70-80 range--Received multiple doses of metoprolol in the ED--apprec cards-- cardizem CD started, cont metoprolol BID
Paroxysmal Atrial Fibrillation--s/p MAZE procedure during nikhil repair in 2021--for ablation in February--Remains on OAC with Eliquis for stroke risk reduction--Also had AtriClip placed in 2021.
anxiety--cont fluoxetine
DVT Prophylaxis: On Eliquis
Code Status: Full
Anticipated Discharge: 24 - 48 hours
Subjective/Interval History
-
Date of Service: January 07, 2024
pt without c/o--doing better
Objective Data
-
Labs:
Laboratory Results
01/07/24
04:36
WBC 1.8 L*
Hgb 12.1
Hct 34.6 L
Plt Count 139
Sodium 134 L
Potassium 4.0 D
Chloride 101
Carbon Dioxide 27
BUN 18 H
Creatinine 0.7
Glucose 128 H
Calcium 9.3
Total Bilirubin 0.8
AST 26
ALT 17
Alkaline Phosphatase 83
Vital Signs:
max temp for 24 hours
01/06/24
02:00 01/06/24
19:54 01/07/24
04:52
Temp 101.8 F H
Actual Weight 72.2 kg 71.6 kg
Vital Signs
Temp Pulse Resp BP Pulse Ox
99.4 F 77 18 115/70 97
01/07/24 07:19 01/07/24 04:35 01/07/24 07:19 01/07/24 04:35 01/07/24 07:19
I&O
01/06/24 01/07/24 01/08/24
06:59 06:59 06:59
Intake Total 250 / 250
Output Total 1250 / 1250 600 / 600
Balance -1250 / -1250 -350 / -350
Review of Systems
-
All other systems: Reviewed and negative
Physical Exam
-
General: Well Developed, Well Nourished and No Apparent Distress
HEENT: Normocephalic and Atraumatic; Negative Oxygen
Respiratory: Crackles (at bases)
Cardiac: Regular Rhythm and S1/S2; Negative Murmur
GI: Soft, Nontender, Nondistended and Normal Bowel Sounds
Musculoskeletal: No Clubbing, No Cyanosis and No Edema
Neuro: Awake
Psych: Calm
[2024-01-07] MEDS: PROZAC 40 MG PO (09:37)
[2024-01-07] MEDS: LASIX 40 MG PO (09:37)
[2024-01-07] MEDS: ELIQUIS 5 MG PO ×2 (09:37→19:50)
[2024-01-07] MEDS: LOPRESSOR 25 MG PO ×2 (09:38→21:24)
[2024-01-07] MEDS: CARDIZEM CD 120 MG PO ×2 (09:38→21:23)
--- NOTE | 2024-01-07 11:44 | W.PN.CARDCBS ---
Today's Communication / Plan
-
Diuretics transition from oral to IV
Increase Cardizem and monitor on telemetry
Repeat chest x-ray
2D echocardiogram planned Monday
Impression / Plan
-
PCP: Dr. Andry Danielle
Cardiology: Dr. Cardozo
Heme/Onc: Dr. Anca Pitt at [place]
Impression:
Paroxysmal atrial tachyarrhythmia
Heart failure preserved ejection fraction acute
Status post MV repair and MAZE 04/13/22
Leukopenia
History of severe MR, eccentric jet of severe MR, severe prolapse of the posterior mitral leaflet, malcoaptation of the anterior and posterior leaflet with possible torn cord posterior leaflet by LIBAN 03/02/22
Nonobstructive CAD by cath 03/02/22
Paroxysmal Afib seen initially 03/25/22
Chronic Eliquis OAC started 03/25/22
Chronic HFpEF
RUL pulmonary nodule
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
Hypokalemia acute likely from diuresis
LIBAN 03/02/22: EF 65%, moderately dilated LA, no thrombus AMIE, moderately thickened mitral valve leaflets, severe prolapse of the posterior�mitral leaflet was present predominately at P2, malcoaptation of the
�anterior and posterior leaflet with a possible torn cord of the posterior leaflet, eccentric jet of severe mitral regurgitation.� Peak E wave velocity 1.7 m/sec.
2022 echocardiogram notes normal ejection fraction
Recommend:
Febrile illness with URI symptoms, suspect viral etiology with acute on chronic leukopenia
-COVID and influenza screens negative
-Discussed with medicine attending. Plan for repeat chest x-ray
-Supportive care will be deferred to hospitalist
Paroxysmal atrial tachyarrhythmias
-She is going in and out of atrial tachycardia
-She has a history of paroxysmal atrial fibrillation on chronic anticoagulation
-Continue Eliquis anticoagulation
-Hemoglobin stable at 12.1
-Will continue metoprolol tartrate 25 mg twice daily and increase new Cardizem CD to 120 mg twice daily
-TSH within normal limits
-Monitor telemetry
-Patient is known to EP, Dr. Villalta with plans for ablation on February 17
Mild volume overload consistent with heart failure with preserved ejection fraction
-Change Lasix from oral to IV
-2D echocardiogram planned tomorrow
-Keep K greater than 4, mag greater than 2
-History of mild hyponatremia with sodium today 134. Monitor with diuresis
History of mitral valve repair 04/13/2022 with maze procedure; no obstructive coronary artery disease by catheterization prior to surgery February 2022
-Repeat 2D echocardiogram
-No symptoms suggestive of angina
Hyperglycemia-check hemoglobin A1c
Plan discussed with patient and her boyfriend at bedside
Discussed care with hospitalist
Progress Note - Card Decorator
Subjective
Date of Service: January 07, 2024
Seen and examined at bedside. Patient lying supine and appears comfortable on room air. No chest pain or pressure. Complaining of cough, sinus congestion and shortness of breath with fever overnight. No abdominal pain or dysuria.
Objective
Labs:
01/07/24 04:36
01/07/24 04:36
Labs
Hgb 12.1 g/dL (12.0-16.0) 01/07/24 04:36
Hct 34.6 % (37.0-47.0) L 01/07/24 04:36
Plt Count 139 10^3/uL (130-400) 01/07/24 04:36
Sodium 134 mmol/L (135-145) L 01/07/24 04:36
Potassium 4.0 mmol/L (3.5-5.1) D 01/07/24 04:36
BUN 18 mg/dl (7-17) H 01/07/24 04:36
Creatinine 0.7 mg/dL (0.6-1.0) 01/07/24 04:36
Glucose 128 mg/dl (70-99) H 01/07/24 04:36
Troponins
01/05/24
22:10
Troponin I < 0.012
Vital Signs and I&O:
Vital Signs
Temp Pulse Resp BP Pulse Ox
99.4 F 78 18 122/85 97
01/07/24 07:19 01/07/24 10:00 01/07/24 07:19 01/07/24 07:18 01/07/24 07:19
Vital Signs
Temp Pulse Resp BP Pulse Ox
99.4 F 78 18 122/85 97
01/07/24 07:19 01/07/24 10:00 01/07/24 07:19 01/07/24 07:18 01/07/24 07:19
Intake & Output
01/05/24 01/06/24 01/07/24 01/08/24
06:59 06:59 06:59 06:59
Intake Total 250 / 250
Output Total 1250 / 1250 600 / 600
Balance -1250 / -1250 -350 / -350
Physical Exam
Physical Exam
General: No acute distress, AAOX3
Neck: Negative JVD
Heart: Regular, positive S1/S2, 1/6 SM
Lungs: Bronchovesicular breath sounds with scattered end expiratory wheezes and coarse rhonchi.
Abd: Positive BS, NT/ND, neg rebound/rigidity/guarding
Ext: No edema
Neuro: nonfocal
[2024-01-07] MEDS: LASIX 40 MG IV (12:10)
[2024-01-07] MEDS: CARDIZEM 30 MG PO (12:10)
[2024-01-07] MEDS: TYLENOL 650 MG PO ×2 (12:11→19:52)
[2024-01-07] MEDS: ROCEPHIN 1000 MG IV (15:29)
[2024-01-07] MEDS: STERILE WATER FOR INJECTION 10 ML IV (15:29)
[2024-01-07] MEDS: TESSALON PERLES 200 MG PO (19:50)
--- NOTE | 2024-01-07 20:00 | PTCARENOTE ---
NSR/PACs. RA. SBP 90s, pt asymptomatic. Will recheck prior to medications. Assessment per nursing flowsheet. Spouse at bedside.
[2024-01-08] VITALS (8 sets, daily range): BP systolic 108–125; BP diastolic 61–80; BMI 23.7
[2024-01-08 05:18] LABS: Hematocrit 37.4 % (37.0-47.0); Hemoglobin 12.6 g/dL (12.0-16.0); Mean Corp Hgb Conc. 33.7 g/dL (33.0-37.0); Mean Corpuscular Hgb 29.1 pg (27.0-31.0); Mean Corpuscular Volume 86.4 fL (81.0-99.0); Mean Platelet Volume 9.5 fL (7.4-10.4); Platelet Count 128 10^3/uL (130-400); Red Blood Cell Count 4.33 10^6/uL (4.20-5.40); Red Cell Dist. Width 14.4 % (11.5-14.5)
[2024-01-08 05:25] LABS: White Blood Cell Count 1.6 10^3/uL (4.8-10.8)
[2024-01-08 05:57] LABS: ALT (SGPT) 16 U/L (0-35); AST (SGOT) 25 U/L (14-36); Albumin 4.1 g/dl (3.5-5.0); Alkaline Phosphatase 87 U/L (38-126); Blood Urea Nitrogen 24 mg/dl (7-17); Calcium 9.3 mg/dl (8.4-10.2); Carbon Dioxide 29 mmol/L (22-30); Chloride 101 mmol/L (98-107); Estimated Creatinine Clearance 81 ml/min; Glucose 113 mg/dl (70-99); Magnesium 2.2 mg/dl (1.6-2.3); Potassium 3.7 mmol/L (3.5-5.1); Sodium 137 mmol/L (135-145); Total Bilirubin 0.5 mg/dl (0.2-1.3); eGFR > 60.00
[2024-01-08 06:06] LABS: NT-proBNP 306 pg/ml
--- NOTE | 2024-01-08 08:47 | PTCARENOTE ---
Rec'd pt from prev nsg shift AAOx3 w/no c/o CP, but mildly SOB w/activity. Pt reports 'feeling much better' than when she came to the hospital. Pt's VS stable w/no fever overnight, last oral temp 98.0, HR in the 60's. BP 111/67. Pt awaiting
echocardiogram this AM. Pt w/no addtl needs at this time & call belll within reach. Plan of care ongoing.
[2024-01-08 08:50] LABS: Glycohemoglobin (HgbA1c) 5.9 % (4.0-5.6)
--- NOTE | 2024-01-08 09:08 | W.PN.HOSP.TC ---
Addendum entered and electronically signed by Shante Mccann MD 01/08/24 09:13:
error --rocephin started NOT zosyn
Original Note:
Today's Communication/Plan
-
echo today
Assessment / Plan
Assessment / Plan
pt is a 63 year old female
Acute on Chronic HFpEF--likely exacerbated by rates/SVT (History of Mitral Valve Repair)--cont IV lasix--apprec cards--cont I/Os--Echo Monday
hypokalemia--pt on diuretic therapy--replete
leukopenia--unclear why--likely from PNA (found on CXR)--zosyn started, cough med, add IS
Paroxysmal SVT--In the ED, patient having paroxysms of SVT with rates into the 120s--Alternately in sinus rhythm in the 70-80 range--Received multiple doses of metoprolol in the ED--apprec cards-- cardizem CD started, cont metoprolol BID
Paroxysmal Atrial Fibrillation--s/p MAZE procedure during nikhil repair in 2021--for ablation in February--Remains on OAC with Eliquis for stroke risk reduction--Also had AtriClip placed in 2021.
anxiety--cont fluoxetine
DVT Prophylaxis: On Eliquis
Code Status: Full
Anticipated Discharge: 24 - 48 hours
Subjective/Interval History
-
Date of Service: January 08, 2024
pt still coughing but states better
Objective Data
-
Labs:
Laboratory Results
01/08/24
04:39
WBC 1.6 L*
Hgb 12.6
Hct 37.4
Plt Count 128 L
Sodium 137
Potassium 3.7
Chloride 101
Carbon Dioxide 29
BUN 24 H
Creatinine 0.7
Glucose 113 H
Calcium 9.3
Total Bilirubin 0.5
AST 25
ALT 16
Alkaline Phosphatase 87
Vital Signs:
max temp for 24 hours
01/08/24
07:33
Temp 98 F
Vital Signs
Temp Pulse Resp BP Pulse Ox
98 F 65 20 111/67 94
01/08/24 07:33 01/08/24 08:00 01/08/24 07:33 01/08/24 07:35 01/08/24 07:33
I&O
01/07/24 01/08/24 01/09/24
06:59 06:59 06:59
Intake Total 250 / 250 960 / 960
Output Total 600 / 600 1850 / 1850
Balance -350 / -350 -890 / -890
Review of Systems
-
All other systems: Reviewed and negative
Respiratory: Reports Cough
Physical Exam
-
General: Well Developed, Well Nourished and No Apparent Distress
HEENT: Normocephalic, Atraumatic and Oxygen
Respiratory: Rhonchi (left base)
Cardiac: Regular Rhythm and S1/S2; Negative Murmur
GI: Soft, Nontender, Nondistended and Normal Bowel Sounds
Musculoskeletal: No Clubbing, No Cyanosis and No Edema
Skin: Warm
Neuro: Awake and Alert
[2024-01-08] MEDS: CARDIZEM CD 120 MG PO ×2 (09:37→20:04)
[2024-01-08] MEDS: PROZAC 40 MG PO (09:38)
[2024-01-08] MEDS: ELIQUIS 5 MG PO ×2 (09:38→20:04)
[2024-01-08] MEDS: TESSALON PERLES 200 MG PO ×2 (09:38→23:24)
[2024-01-08] MEDS: LOPRESSOR 25 MG PO ×2 (09:38→20:04)
[2024-01-08] MEDS: LASIX 40 MG IV (09:38)
--- NOTE | 2024-01-08 12:30 | W.PN.CARDCBS ---
Addendum entered and electronically signed by Franco Keller DO 01/08/24 13:10:
I saw and examined the patient.
The Tattoo Identifier's note was reviewed and I agree with the note.
Comment:
Plan:
Cont IV diuresis. She appears to be below her prior known dry wt.
Echo pending today
Cont Eliquis. She has PVI scheduled for February 2024.
Original Note:
Today's Communication / Plan
-
Ongoing diuresis
Check echo today
Ongoing WILHELM despite being below previous dry weight
Impression / Plan
-
PCP: Dr. Andry Danielle
Cardiology: Dr. Cardozo
Heme/Onc: Dr. Anca Pitt at [place]
Impression:
Paroxysmal atrial tachyarrhythmia
Heart failure preserved ejection fraction acute
Status post MV repair and MAZE 04/13/22
Leukopenia
History of severe MR, eccentric jet of severe MR, severe prolapse of the posterior mitral leaflet, malcoaptation of the anterior and posterior leaflet with possible torn cord posterior leaflet by LIBAN 03/02/22
Nonobstructive CAD by cath 03/02/22
Paroxysmal Afib seen initially 03/25/22
Chronic Eliquis OAC started 03/25/22
Chronic HFpEF
RUL pulmonary nodule
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
Hypokalemia acute likely from diuresis
LIBAN 03/02/22: EF 65%, moderately dilated LA, no thrombus AMIE, moderately thickened mitral valve leaflets, severe prolapse of the posterior�mitral leaflet was present predominately at P2, malcoaptation of the�anterior and posterior leaflet with a
possible torn cord of the posterior leaflet, eccentric jet of severe mitral regurgitation.� Peak E wave velocity 1.7 m/sec.
Echo 07/06/23:EF 55-60%, normal Rv size and function, s/p mitral valve repair with heavy calcification on the posterior leaflet and peak/mean 14/5 mmHg, no MR, mild TR
Echo 01/08/24: Study pending
Recommend:
-Patient reports ongoing WILHELM despite 4 lbs diuresis. Patient is now below previous dry weight of 158 lbs. Will need to establish a new dry weight at time of discharge.
-Echo pending. Patient is s/p MV repair in 2021. No MR seen as last echo 07/06/23
-Patient with known pAtach and previously had intra-op MAZE in 2021 at time of MV repair. Most recently she saw Dr. Perez in the office and is scheduled for an ablation on 02/18/24. Pending echo, symptoms following diuresis and tele might need to try
and expedite ablation of consider more aggressive rate/rhythm control as a bridge until ablation. Outpatient dose of Lopressor 25 mg BID continued and also started on Cardizem CD 120 mg BID this admission
-Outpatient dose of Eliquis 5 mg BID has been continued
-Rocephin added for PNA
HPI: 63-year-old female who is admitted with the usual, throat, and 'lung 'congestion for few days and she was sent home from work. She is admitted with an elevated BNP and dyspnea which is improved with diuresis. She has ongoing issues with
paroxysmal atrial tachyarrhythmias and recently had an EP consultation in our office with Dr. Villalta who is scheduled her for an SVT ablation February 17. She is having salvos of a mid to long RP tachycardia suggesting atrial tachycardia and periods of
sinus rhythm. Metoprolol is 25 mg twice daily currently and she diuresed over a liter on Lasix overnight. She maintains oral anticoagulation therapy. In 2021 she had a mitral valve repair, maze, and L AA clip.
Progress Note - Time Buyer
Subjective
Date of Service: January 08, 2024
She is WILHELM walking to bathroom
Objective
Labs:
01/08/24 04:39
01/08/24 04:39
Labs
Hgb 12.6 g/dL (12.0-16.0) 01/08/24 04:39
Hct 37.4 % (37.0-47.0) 01/08/24 04:39
Plt Count 128 10^3/uL (130-400) L 01/08/24 04:39
Sodium 137 mmol/L (135-145) 01/08/24 04:39
Potassium 3.7 mmol/L (3.5-5.1) 01/08/24 04:39
BUN 24 mg/dl (7-17) H 01/08/24 04:39
Creatinine 0.7 mg/dL (0.6-1.0) 01/08/24 04:39
Glucose 113 mg/dl (70-99) H 01/08/24 04:39
Troponins
01/05/24
22:10
Troponin I < 0.012
Vital Signs and I&O:
Vital Signs
Temp Pulse Resp BP Pulse Ox
98 F 65 20 108/61 90
01/08/24 11:37 01/08/24 11:37 01/08/24 11:37 01/08/24 11:37 01/08/24 11:37
Vital Signs
Temp Pulse Resp BP Pulse Ox
98 F 65 20 108/61 90
01/08/24 11:37 01/08/24 11:37 01/08/24 11:37 01/08/24 11:37 01/08/24 11:37
Intake & Output
01/06/24 01/07/24 01/08/24 01/09/24
06:59 06:59 06:59 06:59
Intake Total 250 / 250 960 / 960 480 / 480
Output Total 1250 / 1250 600 / 600 1850 / 1850 500 / 500
Balance -1250 / -1250 -350 / -350 -890 / -890 -20 / -20
Physical Exam
Physical Exam
GEN: AAOx3
HEENT: EOMI
LUNGS: No audible wheeze
CV: SR on tele
ABD: ND
EXT: No edema B/L LE
NEURO: Gross non-focal
SKIN: Warm, dry and pink. No rash
--- NOTE | 2024-01-08 13:32 | CM ---
Chart reviewed. Patient is independent of ADLS, lives with her significant other in a 2 [address], 1st floor set up, 1 NORMAN, 0 DME. Patient currently with no discharge needs. Plan is for the patient to return home. CM to follow
[2024-01-08] MEDS: STERILE WATER FOR INJECTION 10 ML IV (14:24)
[2024-01-08] MEDS: ROCEPHIN 1000 MG IV (14:24)
--- NOTE | 2024-01-08 23:12 | PTCARENOTE ---
assumed care of pt from previous RN- pt seated in bed without complaints at this time. POC discussed- pt verbalized understanding. SR with PACs on the monitor- HR 60s- 100s with movement. nonproductive dry cough- Tessalon perles PRN. Lungs coarse at
the bases- L>R. call cochran within reach- ambulating as s self
--- NOTE | 2024-01-08 23:44 | PTCARENOTE ---
Pt rang- with complaints of a freq. harsh cough causing her to gag. she stated that she 'feels like she cant breath' 2L NC applied for comfort- Tessalon Perles provided per MAR. emotional support provided- pt still sounds coarse @ B/L bases. no
wheezing noted.
[2024-01-09 04:19] VITALS: BP 122/73
[2024-01-09] MEDS: TESSALON PERLES 200 MG PO ×3 (04:33→21:02)
[2024-01-09 05:04] LABS: Hematocrit 35.8 % (37.0-47.0); Hemoglobin 12.4 g/dL (12.0-16.0); Mean Corp Hgb Conc. 34.6 g/dL (33.0-37.0); Mean Corpuscular Volume 83.8 fL (81.0-99.0); Mean Platelet Volume 9.3 fL (7.4-10.4); Platelet Count 159 10^3/uL (130-400); Red Blood Cell Count 4.27 10^6/uL (4.20-5.40); Red Cell Dist. Width 14.1 % (11.5-14.5); White Blood Cell Count 2.7 10^3/uL (4.8-10.8)
[2024-01-09 05:33] LABS: Blood Urea Nitrogen 24 mg/dl (7-17); Calcium 9.5 mg/dl (8.4-10.2); Carbon Dioxide 32 mmol/L (22-30); Chloride 98 mmol/L (98-107); Estimated Creatinine Clearance 81 ml/min; Glucose 127 mg/dl (70-99); Sodium 134 mmol/L (135-145); eGFR > 60.00
[2024-01-09 06:00] VITALS: BMI 23.8
[2024-01-09 07:21] VITALS: BP 118/77
[2024-01-09] MEDS: LOPRESSOR 25 MG PO ×2 (07:34→21:02)
[2024-01-09] MEDS: LASIX 40 MG IV (07:34)
[2024-01-09] MEDS: ELIQUIS 5 MG PO ×2 (07:34→21:03)
[2024-01-09] MEDS: CARDIZEM CD 120 MG PO ×2 (07:37→21:03)
[2024-01-09] MEDS: PROZAC 40 MG PO (07:37)
--- NOTE | 2024-01-09 08:49 | PTCARENOTE ---
Assumed care of patient at 0700. Pt is awake, alert, and oriented. No complaints of pain. Pt remains SR with PACs, HR 70's-104 with ambulation. BP 118/77 MAP 89. Pt continues to have occasional strong nonproductive cough. Pt currently resting
comfortably in bed with call cochran within reach.
--- NOTE | 2024-01-09 09:23 | W.PN.HOSP.TC ---
Today's Communication/Plan
-
await input from cards re: d/c
Assessment / Plan
Assessment / Plan
pt is a 63 year old female
Acute on Chronic HFpEF--likely exacerbated by rates/SVT (History of Mitral Valve Repair)--cont IV lasix--apprec cards--cont I/Os--Echo with EF 55-60%, dilated R atrium
hypokalemia--pt on diuretic therapy--replete
leukopenia--unclear why--likely from PNA (found on CXR)--rocephin started, cough med, add IS--change to oral at d/c
Paroxysmal SVT--In the ED, patient having paroxysms of SVT with rates into the 120s--Alternately in sinus rhythm in the 70-80 range--Received multiple doses of metoprolol in the ED--apprec cards-- cardizem CD started, cont metoprolol BID
Paroxysmal Atrial Fibrillation--s/p MAZE procedure during nikhil repair in 2021--for ablation in February--Remains on OAC with Eliquis for stroke risk reduction--Also had AtriClip placed in 2021.
anxiety--cont fluoxetine
DVT Prophylaxis: On Eliquis
Code Status: Full
Anticipated Discharge: 24 - 48 hours
Subjective/Interval History
-
Date of Service: January 09, 2024
pt had coughing fit overnight
Objective Data
-
Labs:
Laboratory Results
01/09/24
04:28
WBC 2.7 L
Hgb 12.4
Hct 35.8 L
Plt Count 159 D
Sodium 134 L
Potassium 4.0
Chloride 98
Carbon Dioxide 32 H
BUN 24 H
Creatinine 0.7
Glucose 127 H
Calcium 9.5
Vital Signs:
max temp for 24 hours
01/08/24
23:11
Temp 98.6 F
Vital Signs
Temp Pulse Resp BP Pulse Ox
98.1 F 102 12 118/77 95
01/09/24 07:19 01/09/24 08:00 01/09/24 07:19 01/09/24 07:21 01/09/24 08:47
I&O
01/08/24 01/09/24 01/10/24
06:59 06:59 06:59
Intake Total 960 / 960 960 / 960
Output Total 1850 / 1850 2400 / 2400 700 / 700
Balance -890 / -890 -1440 / -1440 -700 / -700
Review of Systems
-
All other systems: Reviewed and negative
Respiratory: Reports Cough
Physical Exam
-
General: Well Developed, Well Nourished and No Apparent Distress
HEENT: Normocephalic and Atraumatic; Negative Oxygen
Respiratory: Rhonchi (right base)
Cardiac: Regular Rhythm and S1/S2; Negative Murmur
GI: Soft, Nontender, Nondistended and Normal Bowel Sounds
Musculoskeletal: No Clubbing, No Cyanosis and No Edema
Neuro: Awake
--- NOTE | 2024-01-09 11:00 | PTCARENOTE ---
Assumed care of pt from prev nsg shift. Pt AAOx3 w/no c/o CP. Pt mildly SOB w/activity. Pt w/freq, harsh, COUNTER CASER cough. Pt getting scheduled tessalon pearls PO as ordered & using supplemental O2 via NC as needed for comfort. Pt's VS stable, w/HR in the
60-'s-90's. No addtl needs at this time. Plan of care ongoing.
[2024-01-09 11:24] VITALS: BP 116/71
--- NOTE | 2024-01-09 11:49 | CM ---
Chart reviewed. Patient is independent of ADLS, lives with a friend in a 2 [address], 1 st floor set up, 1 NORMAN, 0 DME. Patient currently with no discharge needs. Plan is for the patient to return home. CM to follow
--- NOTE | 2024-01-09 13:06 | W.PN.CARDCBS ---
Addendum entered and electronically signed by Gabriela Marley MD 01/09/24 20:27:
I saw and examined the patient.
The Leaded Glass Installer's note was reviewed and I agree with the note.
Comment: Overall doing well. On tele still with frequent Atach episodes.
Vitals reviewed. Labwork reviewed. Exam with well appearing female in NAD, awake, alert, oriented x 3, and daughter is at bedside, + JVD, Lungs with bibasilar rales, RR, normal S1 and S2. no m/r/g, abd soft, NT, ND, + BS, no LE edema
Reccs:
1. Plan for low dose amio load to decrease burden of Atach in addition to BB. Will discuss with EP in regards to timing of ablation.
2. Cont IV diuresis with close monitoring of lytes and renal fxn and daily weights.
3. Cont eliquis.
4. Repeat echo from 01/07 reviewed with normal LV function, stable prior MV repair with mgrad MV-4mmHG, no signfiicant MR.
Gabriela Marley MD
Original Note:
Today's Communication / Plan
-
consider restart amiodarone as bridge to ablation, will review with EP
continue eliquis
continue IV lasix
move up ablation if able
Impression / Plan
-
PCP: Dr. Andry Danielle
Cardiology: Dr. Cardozo
Heme/Onc: Dr. Anca Pitt at [place]
Impression:
Frequent paroxysmal atrial tachyarrhythmia
Heart failure preserved ejection fraction acute
Status post MV repair and MAZE 04/13/22
Leukopenia
History of severe MR, eccentric jet of severe MR, severe prolapse of the posterior mitral leaflet, malcoaptation of the anterior and posterior leaflet with possible torn cord posterior leaflet by LIBAN 03/02/22
Nonobstructive CAD by cath 03/02/22
Paroxysmal Afib seen initially 03/25/22
Chronic Eliquis OAC started 03/25/22
Previously on amiodarone however stopped 02/2023 in post op setting
Chronic HFpEF
RUL pulmonary nodule
Hypokalemia acute likely from diuresis
LIABN 03/02/22: EF 65%, moderately dilated LA, no thrombus AMIE, moderately thickened mitral valve leaflets, severe prolapse of the posterior�mitral leaflet was present predominately at P2, malcoaptation of the�anterior and posterior leaflet with a
possible torn cord of the posterior leaflet, eccentric jet of severe mitral regurgitation.� Peak E wave velocity 1.7 m/sec.
Echo 07/06/23:EF 55-60%, normal Rv size and function, s/p mitral valve repair with heavy calcification on the posterior leaflet and peak/mean 14/5 mmHg, no MR, mild TR
Echo 01/08/24:
Recommend:
-She reports improvement in breathing from admission
-remains with intermittent palpitations
-on review of tele, continues with frequent brief runs of PAT. she has history of MAZE at time of MV repair in 2021.
-currently on lopressor 25mg BID and cardizem cd 120mg BID added this admission. will review with EP, would consider resuming amiodarone which she had previously been on post operatively until was stopped in 02/2023 (stopped due to young age and no
noted afib recurrence)
-she is presently scheduled for ablation 03/06/[address] Perez. would attempt to move up if possible
-continue eliquis
-continue IV lasix. weight trending down if accurate and patient reports good output. she remains with crackles on exam today. Cr stable. dry weight previously 158 pounds, will need to reestablish
-echo with preserved EF and well functioning MV repair from 2021
-Rocephin added for PNA
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
-d/w nursing
HPI: 63-year-old female who is admitted with the usual, throat, and 'lung 'congestion for few days and she was sent home from work. She is admitted with an elevated BNP and dyspnea which is improved with diuresis. She has ongoing issues with
paroxysmal atrial tachyarrhythmias and recently had an EP consultation in our office with Dr. Villalta who is scheduled her for an SVT ablation February 17. She is having salvos of a mid to long RP tachycardia suggesting atrial tachycardia and periods of
sinus rhythm. Metoprolol is 25 mg twice daily currently and she diuresed over a liter on Lasix overnight. She maintains oral anticoagulation therapy. In 2021 she had a mitral valve repair, maze, and L AA clip.
Progress Note - Infantry Unit Leader
Subjective
Date of Service: January 09, 2024
reports improvement in breathing from admission. remains with some palpitations
Objective
Labs:
01/09/24 04:28
01/09/24 04:28
Labs
Hgb 12.4 g/dL (12.0-16.0) 01/09/24 04:28
Hct 35.8 % (37.0-47.0) L 01/09/24 04:28
Plt Count 159 10^3/uL (130-400) D 01/09/24 04:28
Sodium 134 mmol/L (135-145) L 01/09/24 04:28
Potassium 4.0 mmol/L (3.5-5.1) 01/09/24 04:28
BUN 24 mg/dl (7-17) H 01/09/24 04:28
Creatinine 0.7 mg/dL (0.6-1.0) 01/09/24 04:28
Glucose 127 mg/dl (70-99) H 01/09/24 04:28
Vital Signs and I&O:
Vital Signs
Temp Pulse Resp BP Pulse Ox
98.6 F 67 18 116/71 94
01/09/24 11:26 01/09/24 11:24 01/09/24 11:26 01/09/24 11:24 01/09/24 11:26
Vital Signs
Temp Pulse Resp BP Pulse Ox
98.6 F 67 18 116/71 94
01/09/24 11:26 01/09/24 11:24 01/09/24 11:26 01/09/24 11:24 01/09/24 11:26
Intake & Output
01/07/24 01/08/24 01/09/24 01/10/24
07:59 07:59 07:59 07:59
Intake Total 250 / 250 960 / 960 960 / 960
Output Total 600 / 600 1850 / 1850 3100 / 3100 700 / 700
Balance -350 / -350 -890 / -890 -2140 / -2140 -700 / -700
Physical Exam
Physical Exam
GEN: No distress, awake, alert, oriented x3
HEENT: supple, anicteric, mmm, eomi
LUNGS: Crackles and mild wheezing B/L
CV: Reg, S1/S2, no murmur
ABD: soft, BS+, NT/ND
EXT: No cyanosis, clubbing. trace edema of B/L LE
NEURO: Gross non-focal
SKIN: Warm, pink, dry. No rash
[2024-01-09] MEDS: ROCEPHIN 1000 MG IV (13:09)
[2024-01-09] MEDS: FLUSH (NSS) 2 FLUSH IV (13:09)
[2024-01-09] MEDS: STERILE WATER FOR INJECTION 10 ML IV (13:09)
[2024-01-09 16:14] VITALS: BP 100/64
[2024-01-09 19:50] VITALS: BP 115/72
[2024-01-09] MEDS: PACERONE 200 MG PO (21:03)
[2024-01-09 22:35] VITALS: BP 122/61
--- NOTE | 2024-01-10 02:04 | PTCARENOTE ---
Assumed care of pt. AOx3. Assessment noted as documented. Pt sating at 96% on 2L O2 NC. VSS. Currently in bed; call dimas w/in reach.
[2024-01-10 04:16] VITALS: BP 100/68
[2024-01-10 04:27] VITALS: BMI 23.8
[2024-01-10 04:48] LABS: Hematocrit 35.9 % (37.0-47.0); Hemoglobin 12.5 g/dL (12.0-16.0); Mean Corp Hgb Conc. 34.8 g/dL (33.0-37.0); Mean Corpuscular Hgb 29.3 pg (27.0-31.0); Mean Corpuscular Volume 84.3 fL (81.0-99.0); Platelet Count 161 10^3/uL (130-400); Red Blood Cell Count 4.26 10^6/uL (4.20-5.40); Red Cell Dist. Width 14.1 % (11.5-14.5)
[2024-01-10 04:51] LABS: White Blood Cell Count 2.3 10^3/uL (4.8-10.8)
[2024-01-10 05:17] LABS: Blood Urea Nitrogen 28 mg/dl (7-17); Calcium 9.3 mg/dl (8.4-10.2); Carbon Dioxide 29 mmol/L (22-30); Chloride 101 mmol/L (98-107); Estimated Creatinine Clearance 81 ml/min; Glucose 123 mg/dl (70-99); Potassium 3.8 mmol/L (3.5-5.1); Sodium 137 mmol/L (135-145); eGFR > 60.00
[2024-01-10 07:25] VITALS: BP 118/73
[2024-01-10] MEDS: LOPRESSOR 25 MG PO ×2 (08:50→19:37)
[2024-01-10] MEDS: TESSALON PERLES 200 MG PO ×3 (08:50→22:24)
[2024-01-10] MEDS: PACERONE 200 MG PO ×2 (08:50→19:37)
[2024-01-10] MEDS: CARDIZEM CD 120 MG PO ×2 (08:50→19:37)
[2024-01-10] MEDS: PROZAC 40 MG PO (08:50)
[2024-01-10] MEDS: ELIQUIS 5 MG PO ×2 (08:50→19:36)
[2024-01-10] MEDS: LASIX 40 MG IV (08:51)
[2024-01-10] MEDS: FLUSH (NSS) 1 FLUSH IV ×2 (08:52→14:39)
--- NOTE | 2024-01-10 08:54 | W.PN.CARDCBS ---
Addendum entered and electronically signed by Raul Cardozo MD 01/10/24 09:07:
I saw and examined the patient.
The Pearler's note was reviewed and I agree with the note.
Comment: GEN: No distress, awake, Ox3
HEENT: supple, anicteric, mmm
LUNGS: scatt rhonchi
CV: Reg, S1/S2, no gallop
ABD: soft, BS+, NT/ND
EXT: No edema
NEURO: Gross non-focal
SKIN: No rash
Plan:
Clinically is improving. On telemetry he had mainly sinus rhythm overnight back on amiodarone 200 mg p.o. twice daily.
Will continue to diurese with IV Lasix for another 24 hours with likely discharge in a.m.
Will discuss with the EP moving up ablation.
Continue Eliquis.
Original Note:
Today's Communication / Plan
-
continue amiodarone 200mg BID today, reduce dose upon DC
continue eliquis
continue IV lasix, possible transition to po after AM dose 01/10
will attempt to move up ablation
Impression / Plan
-
PCP: Dr. Andry Danielle
Cardiology: Dr. Cardozo
Heme/Onc: Dr. Anca Pitt at [place]
Impression:
Frequent paroxysmal atrial tachyarrhythmia
Heart failure preserved ejection fraction acute
Status post MV repair and MAZE 04/13/22
Leukopenia
History of severe MR, eccentric jet of severe MR, severe prolapse of the posterior mitral leaflet, malcoaptation of the anterior and posterior leaflet with possible torn cord posterior leaflet by LIBAN 03/02/22
Nonobstructive CAD by cath 03/02/22
Paroxysmal Afib seen initially 03/25/22
Chronic Eliquis OAC started 03/25/22
Previously on amiodarone however stopped 02/2023 in post op setting
Chronic HFpEF
RUL pulmonary nodule
Hypokalemia acute likely from diuresis
LIBAN 03/02/22: EF 65%, moderately dilated LA, no thrombus AMIE, moderately thickened mitral valve leaflets, severe prolapse of the posterior�mitral leaflet was present predominately at P2, malcoaptation of the�anterior and posterior leaflet with a
possible torn cord of the posterior leaflet, eccentric jet of severe mitral regurgitation.� Peak E wave velocity 1.7 m/sec.
Echo 07/06/23:EF 55-60%, normal Rv size and function, s/p mitral valve repair with heavy calcification on the posterior leaflet and peak/mean 14/5 mmHg, no MR, mild TR
Echo 01/08/24:
Recommendations:
-she continues to improve. no CP. reports some continued 'congestion'
-amiodarone was restarted yesterday at 200mg BID. since ~2AM she has had significantly less AT on review of tele. will continue 200mg BID today and plan to reduce dose to 100mg vs 200mg daily upon DC
-continue lopressor, cardizem cd
-she is presently scheduled for ablation 03/06/[address] Perez. would attempt to move up if possible. 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
-continue eliquis
-continue IV lasix 40mg daily. weight trending down if accurate and patient reports good output. she remains with some crackles on exam today. Cr stable. dry weight previously 158 pounds, will need to reestablish. prior to admission was on 40mg po
daily.
-echo with preserved EF and well functioning MV repair from 2021
-on rocephin for treatment of PNA
-d/w nursing
HPI: 63-year-old female who is admitted with the usual, throat, and 'lung 'congestion for few days and she was sent home from work. She is admitted with an elevated BNP and dyspnea which is improved with diuresis. She has ongoing issues with
paroxysmal atrial tachyarrhythmias and recently had an EP consultation in our office with Dr. Villalta who is scheduled her for an SVT ablation February 17. She is having salvos of a mid to long RP tachycardia suggesting atrial tachycardia and periods of
sinus rhythm. Metoprolol is 25 mg twice daily currently and she diuresed over a liter on Lasix overnight. She maintains oral anticoagulation therapy. In 2021 she had a mitral valve repair, maze, and L AA clip.
Progress Note - Wash Tank Tender
Subjective
Date of Service: January 10, 2024
no CP. reports some continued 'congestion'. reports good urine output
Objective
Labs:
01/10/24 04:24
01/10/24 04:24
Labs
Hgb 12.5 g/dL (12.0-16.0) 01/10/24 04:24
Hct 35.9 % (37.0-47.0) L 01/10/24 04:24
Plt Count 161 10^3/uL (130-400) 01/10/24 04:24
Sodium 137 mmol/L (135-145) 01/10/24 04:24
Potassium 3.8 mmol/L (3.5-5.1) 01/10/24 04:24
BUN 28 mg/dl (7-17) H 01/10/24 04:24
Creatinine 0.7 mg/dL (0.6-1.0) 01/10/24 04:24
Glucose 123 mg/dl (70-99) H 01/10/24 04:24
Vital Signs and I&O:
Vital Signs
Temp Pulse Resp BP Pulse Ox
97.3 F 66 16 100/68 96
01/10/24 07:23 01/10/24 07:23 01/10/24 07:23 01/10/24 04:16 01/10/24 07:23
Vital Signs
Temp Pulse Resp BP Pulse Ox
97.3 F 66 16 100/68 96
01/10/24 07:23 01/10/24 07:23 01/10/24 07:23 01/10/24 04:16 01/10/24 07:23
Intake & Output
01/08/24 01/09/24 01/10/24 01/11/24
07:59 07:59 07:59 07:59
Intake Total 960 / 960 960 / 960
Output Total 1850 / 1850 3100 / 3100 1300 / 1300
Balance -890 / -890 -2140 / -2140 -1300 / -1300
Physical Exam
Physical Exam
GEN: No distress, awake, alert, oriented x3
HEENT: supple, anicteric, mmm, eomi
LUNGS: Few crackles B/L bases, no wheezing
CV: Reg, S1/S2, no murmur
ABD: soft, BS+, NT/ND
EXT: No cyanosis, clubbing, edema
NEURO: Gross non-focal
SKIN: Warm, pink, dry. No rash
--- NOTE | 2024-01-10 09:23 | W.PN.HOSP.TC ---
Today's Communication/Plan
-
cont IV diuresis today
Assessment / Plan
Assessment / Plan
pt is a 63 year old female
Acute on Chronic HFpEF--likely exacerbated by rates/SVT (History of Mitral Valve Repair)--cont IV lasix--apprec cards--cont I/Os--Echo with EF 55-60%, dilated R atrium--planning for another day of IV diuresis today
hypokalemia--pt on diuretic therapy--replete
leukopenia--unclear why--likely from PNA (found on CXR)--rocephin started, cough med, add IS--change to oral at d/c
Paroxysmal SVT--In the ED, patient having paroxysms of SVT with rates into the 120s--Alternately in sinus rhythm in the 70-80 range--Received multiple doses of metoprolol in the ED--apprec cards-- cardizem CD started, cont metoprolol BID--trying to
get ablation moved up
Paroxysmal Atrial Fibrillation--s/p MAZE procedure during nikhil repair in 2021--for ablation in February, trying to get ablation moved up--Remains on OAC with Eliquis for stroke risk reduction--Also had AtriClip placed in 2021.
anxiety--cont fluoxetine
DVT Prophylaxis: On Eliquis
Code Status: Full
Anticipated Discharge: Within 24 hours
Subjective/Interval History
-
Date of Service: January 10, 2024
pt states coughing improved
Objective Data
-
Labs:
Laboratory Results
01/10/24
04:24
WBC 2.3 L*
Hgb 12.5
Hct 35.9 L
Plt Count 161
Sodium 137
Potassium 3.8
Chloride 101
Carbon Dioxide 29
BUN 28 H
Creatinine 0.7
Glucose 123 H
Calcium 9.3
Vital Signs:
max temp for 24 hours
01/10/24
04:19
Temp 98.6 F
Vital Signs
Temp Pulse Resp BP Pulse Ox
97.3 F 66 16 100/68 96
01/10/24 07:23 01/10/24 07:23 01/10/24 07:23 01/10/24 04:16 01/10/24 07:23
I&O
01/09/24 01/10/24 01/11/24
06:59 06:59 06:59
Intake Total 960 / 960
Output Total 2400 / 2400 1999
Balance -1440 / -1440 -1999 /
Review of Systems
-
All other systems: Reviewed and negative
Physical Exam
-
General: Well Developed, Well Nourished and No Apparent Distress
HEENT: Normocephalic and Atraumatic
Respiratory: Rhonchi (improved in right base) and Crackles
Cardiac: Regular Rhythm, S1/S2 and Murmur
GI: Soft, Nontender, Nondistended and Normal Bowel Sounds
Musculoskeletal: No Clubbing, No Cyanosis and No Edema
Neuro: Awake
[2024-01-10 11:17] VITALS: BP 119/84
[2024-01-10] MEDS: ROCEPHIN 1000 MG IV (14:38)
[2024-01-10] MEDS: STERILE WATER FOR INJECTION 10 ML IV (14:38)
[2024-01-10 16:27] VITALS: BP 101/70
--- NOTE | 2024-01-10 18:00 | PTCARENOTE ---
Pt with no c/o today. OOB ad george in the room. Remains in SR with no SVT. Pt continues with occas non productive cough but denies any sob.
[2024-01-10 19:10] VITALS: BP 112/80
--- NOTE | 2024-01-10 21:12 | PTCARENOTE ---
AOX3 and pleasant. Tele- ST/SR. HR 90-100s. Assessment noted as documented. Pt w/ occ. non-prod moist cough. Sating at 95% RA. Offers no c/o at this time. Currently in bed; call dimas w/in reach.
[2024-01-10 22:27] VITALS: BP 115/66
[2024-01-11 04:22] VITALS: BP 102/63
[2024-01-11 04:29] VITALS: BMI 23.9
[2024-01-11 05:06] LABS: Hematocrit 35.9 % (37.0-47.0); Hemoglobin 12.2 g/dL (12.0-16.0); Mean Corpuscular Hgb 28.5 pg (27.0-31.0); Mean Corpuscular Volume 83.9 fL (81.0-99.0); Mean Platelet Volume 9.1 fL (7.4-10.4); Platelet Count 193 10^3/uL (130-400); Red Blood Cell Count 4.28 10^6/uL (4.20-5.40); White Blood Cell Count 3.2 10^3/uL (4.8-10.8)
[2024-01-11 05:31] LABS: Blood Urea Nitrogen 25 mg/dl (7-17); Calcium 9.7 mg/dl (8.4-10.2); Carbon Dioxide 29 mmol/L (22-30); Chloride 101 mmol/L (98-107); Estimated Creatinine Clearance 81 ml/min; Glucose 102 mg/dl (70-99); Magnesium 2.2 mg/dl (1.6-2.3); Potassium 3.9 mmol/L (3.5-5.1); Sodium 138 mmol/L (135-145); eGFR > 60.00
[2024-01-11 07:28] VITALS: BP 96/56
--- NOTE | 2024-01-11 07:44 | W.PN.CARDCBS ---
Addendum entered and electronically signed by Atiya Forman DO 01/11/24 12:30:
I saw and examined the patient.
The [employer]'s note was reviewed and I agree with the note.
Comment: Seen and examined. Overall patient is feeling better. Shortness of breath is overall improved but not at baseline. Still with cough and occasional wheeze. No further fevers. Denies palpitations. Denies chest pain or pressure.
GEN: No distress, awake, alert, oriented x3
HEENT: mmm
LUNGS: Bronchovesicular breath sounds with rhonchi right lower base. No wheezes. No crackles.
CV: Reg, S1/S2, 1/6 SM
ABD: soft, BS+, NT/ND
EXT: No cyanosis, clubbing, edema
NEURO: Gross non-focal
Plan:
Febrile illness with pneumonia on chest x-ray/chronic leukopenia
-COVID and influenza screens negative
-Antibiotics per primary
-Repeat chest x-ray in 4 to 6 weeks
-Would hold on elective procedures that require anesthesia for approximately 6 weeks to allow recovery from pneumonia
-Recommend patient follow-up with her primary care physician in 1 week
Paroxysmal atrial tachyarrhythmias
-She has a history of paroxysmal atrial fibrillation on chronic anticoagulation
-Continue Eliquis anticoagulation
-Hemoglobin stable at 12.2
-Will continue metoprolol tartrate 25 mg twice daily and new Cardizem CD to 120 mg twice daily
-Short-term amiodarone until anticipated ablation: Reduce amiodarone to 200 mg once daily.
-Twelve-lead EKG today sinus rhythm with first-degree AV block, 212 ms. QTc prolonged at 513 ms [on amiodarone 200 mg twice daily]
-TSH within normal limits
-Patient is known to Dr. Ambar MARES with plans for ablation on March 06
-Will arrange outpatient cardiac follow-up in 1 week for EKG and to reassess symptoms
Mild volume overload consistent with heart failure with preserved ejection fraction
-Improved with IV Lasix now on Lasix 60 mg daily
-Keep K greater than 4, mag greater than 2
History of mitral valve repair 04/13/2022 with maze procedure; no obstructive coronary artery disease by catheterization prior to surgery February 2022
-Repeat 2D echocardiogram 01/08/2024 with normal LV size and systolic function. EF 55-60% with normal RV size and systolic function. Mitral valve repair with mean mitral valve gradient 4 mmHg and no mitral regurgitation. Aortic valve structurally
normal. Tricuspid valve with mild TR. Estimated pulmonary artery pressures 30-35 mmHg. No pericardial effusion. IVC normal in size with normal respiratory variation
-No symptoms suggestive of angina
Hyperglycemia-prediabetic state with hemoglobin A1c 5.9%.
-Importance of glycemic control stressed
-Management per her outpatient primary care physician
Stable from a cardiac standpoint for discharge home today
Will arrange outpatient cardiac follow-up
Original Note:
Today's Communication / Plan
-
abx per primary service
repeat CXR in 4-6 weeks
ablation currently scheduled for 03/06, may need to keep to allow to recover from PNA standpoint
continue amiodarone 200mg BID for 2 weeks then decrease to 200mg daily
continue lopressor, cardizem cd, eliquis
po lasix 60mg daily
BMP in 1 week
OP cardiac follow up arranged
Impression / Plan
-
PCP: Dr. Andry Danielle
Cardiology: Dr. Cardozo
Heme/Onc: Dr. Anca Pitt at [facility]
Impression:
Frequent paroxysmal atrial tachyarrhythmia
Heart failure preserved ejection fraction acute
Status post MV repair and MAZE 04/13/22
Leukopenia
History of severe MR, eccentric jet of severe MR, severe prolapse of the posterior mitral leaflet, malcoaptation of the anterior and posterior leaflet with possible torn cord posterior leaflet by LIBAN 03/02/22
Nonobstructive CAD by cath 03/02/22
Paroxysmal Afib seen initially 03/25/22
Chronic Eliquis OAC started 03/25/22
Previously on amiodarone however stopped 02/2023 in post op setting
Chronic HFpEF
RUL pulmonary nodule
Hypokalemia acute likely from diuresis
LIBAN 03/02/22: EF 65%, moderately dilated LA, no thrombus AMIE, moderately thickened mitral valve leaflets, severe prolapse of the posterior�mitral leaflet was present predominately at P2, malcoaptation of the�anterior and posterior leaflet with a
possible torn cord of the posterior leaflet, eccentric jet of severe mitral regurgitation.� Peak E wave velocity 1.7 m/sec.
Echo 07/06/23:EF 55-60%, normal Rv size and function, s/p mitral valve repair with heavy calcification on the posterior leaflet and peak/mean 14/5 mmHg, no MR, mild TR
Echo 01/08/24:
Recommendations:
-reports feeling well
-SVT/atach burden decreasing by review of tele since initiation of amiodarone. plan to continue 200mg BID for 2 weeks then decrease to 200mg daily
-continue lopressor/cardizem cd
-remains with wheezing on exam today. as diuresed well, do not think cardiac wheezing at this point. continue treatment of PNA per primary service
-she will need repeat CXR in 4-6 weeks to assess for resolution of PNA
-from pulm standpoint, need to wait 6 weeks for procedure/anesthesia post PNA. currently scheduled for ablation 03/[address] Perez
-continue eliquis
-was on po lasix 40mg daily. would consider DC on po lasix 60mg daily
-BMP in 1 week
-echo with preserved EF and well functioning MV repair from 2021
-OP cardiac follow up arranged
-d/w hospitalist via TT
HPI: 63-year-old female who is admitted with the usual, throat, and 'lung 'congestion for few days and she was sent home from work. She is admitted with an elevated BNP and dyspnea which is improved with diuresis. She has ongoing issues with
paroxysmal atrial tachyarrhythmias and recently had an EP consultation in our office with Dr. Villalta who is scheduled her for an SVT ablation February 17. She is having salvos of a mid to long RP tachycardia suggesting atrial tachycardia and periods of
sinus rhythm. Metoprolol is 25 mg twice daily currently and she diuresed over a liter on Lasix overnight. She maintains oral anticoagulation therapy. In 2021 she had a mitral valve repair, maze, and L AA clip.
Progress Note - [employer]
Subjective
Date of Service: January 11, 2024
feeling improved. eager for DC. no CP, palpitations.
Objective
Labs:
01/11/24 04:28
01/11/24 04:28
Labs
Hgb 12.2 g/dL (12.0-16.0) 01/11/24 04:28
Hct 35.9 % (37.0-47.0) L 01/11/24 04:28
Plt Count 193 10^3/uL (130-400) 01/11/24 04:28
Sodium 138 mmol/L (135-145) 01/11/24 04:28
Potassium 3.9 mmol/L (3.5-5.1) 01/11/24 04:28
BUN 25 mg/dl (7-17) H 01/11/24 04:28
Creatinine 0.7 mg/dL (0.6-1.0) 01/11/24 04:28
Glucose 102 mg/dl (70-99) H 01/11/24 04:28
Vital Signs and I&O:
Vital Signs
Temp Pulse Resp BP Pulse Ox
97.9 F 72 20 102/63 93
01/11/24 07:26 01/11/24 04:22 01/11/24 07:26 01/11/24 04:22 01/11/24 07:26
Vital Signs
Temp Pulse Resp BP Pulse Ox
97.9 F 72 20 102/63 93
01/11/24 07:26 01/11/24 04:22 01/11/24 07:26 01/11/24 04:22 01/11/24 07:26
Intake & Output
01/08/24 01/09/24 01/10/24 01/11/24
07:59 07:59 07:59 07:59
Intake Total 960 / 960 960 / 960 240 / 240
Output Total 1850 / 1850 3100 / 3100 1300 / 1300 2200 / 2200
Balance -890 / -890 -2140 / -2140 -1300 / -1300 -1960 / -1959
Physical Exam
Physical Exam
GEN: No distress, awake, alert, oriented x3
HEENT: supple, anicteric, mmm, eomi
LUNGS: Few crackles B/L bases, exp wheezes
CV: Reg, S1/S2, no murmur
ABD: soft, BS+, NT/ND
EXT: No cyanosis, clubbing, edema
NEURO: Gross non-focal
SKIN: Warm, pink, dry. No rash
--- NOTE | 2024-01-11 08:00 | PTCARENOTE ---
Resumed care of patient from previous RN. Walking rounds completed. Resting in bed at time of assessment. AAOX3. VSS. SR on monitor. HR in 60s. EKG done per orders. All ordered meds given. patient without complaints of pain or SOB at this time. 95%
RA. Will order breakfast now. independent with all personal care. Steady gait. pulses palpable no skin issues. will continue to monitor.
[2024-01-11] MEDS: LASIX 40 MG IV (08:18)
[2024-01-11] MEDS: TESSALON PERLES 200 MG PO (08:19)
[2024-01-11] MEDS: PACERONE 200 MG PO (08:19)
[2024-01-11] MEDS: LOPRESSOR 25 MG PO (08:19)
[2024-01-11] MEDS: ELIQUIS 5 MG PO (08:19)
[2024-01-11] MEDS: PROZAC 40 MG PO (08:20)
[2024-01-11] MEDS: CARDIZEM CD 120 MG PO (08:20)
--- NOTE | 2024-01-11 10:13 | W.PN.HOSP.TC ---
Today's Communication/Plan
-
d/c
Assessment / Plan
Assessment / Plan
pt is a 63 year old female
Acute on Chronic HFpEF--likely exacerbated by rates/SVT (History of Mitral Valve Repair)--IV lasix to PO--apprec cards--cont I/Os--Echo with EF 55-60%, dilated R atrium
hypokalemia--pt on diuretic therapy--replete
leukopenia--unclear why--likely from PNA (found on CXR)--rocephin started, cough med, add IS--change to oral at d/c--repeat CXR 1 week after abx finished
Paroxysmal SVT--In the ED, patient having paroxysms of SVT with rates into the 120s--Alternately in sinus rhythm in the 70-80 range--Received multiple doses of metoprolol in the ED--apprec cards-- cardizem CD started, cont metoprolol BID--cards
trying to get ablation moved up
Paroxysmal Atrial Fibrillation--s/p MAZE procedure during nikhil repair in 2021--for ablation in February, cards trying to get ablation moved up--Remains on OAC with Eliquis for stroke risk reduction--Also had AtriClip placed in 2021.
anxiety--cont fluoxetine
DVT Prophylaxis: On Eliquis
Code Status: Full
Anticipated Discharge: Today
Subjective/Interval History
-
Date of Service: January 11, 2024
pt doing OK--ready for d/c per cards
Objective Data
-
Labs:
Laboratory Results
01/11/24
04:28
WBC 3.2 L
Hgb 12.2
Hct 35.9 L
Plt Count 193
Sodium 138
Potassium 3.9
Chloride 101
Carbon Dioxide 29
BUN 25 H
Creatinine 0.7
Glucose 102 H
Calcium 9.7
Vital Signs:
max temp for 24 hours
01/10/24
19:55
Temp 98.3 F
Vital Signs
Temp Pulse Resp BP Pulse Ox
97.9 F 64 20 96/56 95
01/11/24 07:26 01/11/24 08:18 01/11/24 07:26 01/11/24 08:18 01/11/24 08:00
I&O
01/10/24 01/11/24 01/12/24
06:59 06:59 06:59
Intake Total 240 / 240
Output Total 1999 / 2199
Balance -1999 -1959 /
Review of Systems
-
All other systems: Reviewed and negative
Physical Exam
-
General: Well Developed, Well Nourished and No Apparent Distress
HEENT: Normocephalic and Atraumatic
Respiratory: Clear to Auscultation; Negative Wheezes or Rhonchi
Cardiac: Regular Rhythm and S1/S2; Negative Murmur
GI: Soft, Nontender, Nondistended and Normal Bowel Sounds
Musculoskeletal: No Clubbing, No Cyanosis and No Edema
Neuro: Awake and Alert
Psych: Calm
--- NOTE | 2024-01-11 10:20 | CM ---
Reviewed chart. Met with Ms. Iniguez to review discharge plans. She states she is feeling better and maybe able to go home soon. She states prior to admission she resides with her boyfriend in a two story home with one step to enter. She states
she has a first floor set-up. She states prior to admission she was independent with ambulation and adls. She states she does not have any DME in the home. She states she has a prescription plan. Medical work-up in progress. The discharge plan is
to return home with her boyfriend when medically stable.
[2024-01-11 12:02] VITALS: BP 104/80
--- NOTE | 2024-01-11 17:04 | W.DCSUMMARY ---
Discharge Summary
Discharge Data
Date of Admission: 01/07/24
Date of Discharge: 01/11/24
-
Pending Results: No
Hospital Course
Primary care physician : Andry Danielle
Principal Discharge diagnosis : Acute on chronic diastolic congestive heart failure exacerbation exacerbated by supraventricular tachycardia, hypokalemia, leukopenia
Chronic Discharge diagnosis : Paroxysmal supraventricular tachycardia, paroxysmal atrial fibrillation, anxiety
Hospital Course : Patient was a 63y F with PMH significant for mitral valve repair, paroxysmal A-Fib and paroxysmal SVT who presented to ED complaining of nasal and chest congestion, fatigue and SOB. Patient states that she developed these
symptoms starting the day prior to admission and they have progressed. Patient had similar symptoms a few weeks ago and was seen in the ED here on 12/15/23. At that time she was noted to have paroxysms of SVT into the 120-140 range. She was also
noted to be in mild CHF and was treated with a dose of IV Lasix. This resulted in improvement in her symptoms of 'congestion'. Her outpatient Lasix dose was increased from 20mg daily to 40mg daily. She states that her weight has remained fairly
stable since that time. Patient was seen by Cardiology for evaluation after that ED stay and is scheduled for EP evaluation and possible ablation in February. Patient was admitted.
Problem #1: Acute on chronic diastolic congestive heart failure exacerbation exacerbated by supraventricular tachycardia. Patient was admitted and seen in consultation by cardiology. Echocardiogram was done which showed normal ejection fraction,
dilated right atrium, mitral valve repair, elevated pulmonary artery pressure of 30 to 35 mmHg, and Abnormal indexed left atrial volume. Patient was provided with IV Lasix and diuresed. During her hospitalization, patient had paroxysms of the
atrial tachyarrhythmias. She was started on amiodarone. TSH was checked and was within normal limits. Plan was for cardiology to move up her ablation previously scheduled for March 06. She should follow-up with cardiology to assess revisiting the
timing of this.
Problem #2: Hypokalemia. This was followed and repleted as necessary.
Problem #3: Leukopenia. During her hospitalization, patient was complaining of coughing. This seemed out of proportion. Chest x-ray was done which showed pneumonia. IV Rocephin was started along with cough medications and incentive spirometer.
Plan will be for 1 further week of antibiotics and then a week following that repeat chest x-ray. If her ablation is moved up, she should get the chest x-ray prior to her ablation to ensure clearance. She was changed to oral cephalexin at
discharge. Patient's leukopenia did improve with her treatment
Problem #4: All other medical issues. These include Paroxysmal supraventricular tachycardia, paroxysmal atrial fibrillation, anxiety. These medical issues were stable during her hospitalization other than the items mentioned above. Medications
were continued as able.
Patient is stable for discharge home at this time. If there are any questions regarding this dictation or her hospital stay, please not hesitate to call. Our office number is [phone].
Important imaging findings :
CXR IMPRESSION:
Subtle pneumonia in the posterior lung base.
Procedure findings :
ECHOCARDIOGRAM CONCLUSIONS:
Normal left ventricular size, wall thickness and systolic function.
LV ejection fraction is 55-60% by Viramontes's method of discs.
Normal right ventricular systolic function.
Indexed LA volume is severely abnormal (> 48 mL/m2).
Mildly dilated right atrium.
Mitral valve repair.
Mean gradient is 4mmHg.
No mitral regurgitation is seen.
Tricuspid valve opens normally.
Estimated pulmonary artery pressure of 30-35 mmHg.
Trace pulmonic regurgitation.
The IVC is of normal size and demonstrates normal respiratory variation.
Interatrial septum is intact with no evidence of shunting by color flow
Doppler.
Discharge Plan
-
Patient Disposition: Home (Routine Discharge)
Discharge Diagnosis/Procedures: Acute on chronic diastolic congestive heart failure exacerbation, hypokalemia, leukopenia likely from pneumonia, paroxysmal supraventricular tachycardia, paroxysmal atrial fibrillation, anxiety
Condition: Good
Diet: Low Cholesterol and 2 Gram Sodium
Activity: As tolerated
Driving Restrictions: As prior to admission
Bathing Restrictions: None
Blood Work: BMP in 1 week
Others Tests: CXR in 3-4 weeks through primary care physician--must have prior to ablation
Specialty Instructions: Weigh Daily- Call MD for wt gain/loss 3 lbs overnight/5 lbs in 1 week
Instructions: *[facility] Heart Failure Instructions
Referrals:
Andry Danielle DO [Family Provider] - in less than 1 week
Linda Gunn PA-C [Specified Professional Personl] - 01/18/24 10:40 am (You have a cardiology follow up appointment at the [place] office with Dr. Cardozo's physician ambulance assistant, Linda. Please call with questions)
Prescriptions:
New
diltiazem HCl [Cartia XT] 120 mg Capsule,Extended Release 24hr
120 mg PO BID Qty: 60 0RF
acetaminophen 325 mg Tablet
650 mg PO Q4HPRN PRN (Reason: Mild Pain / Temp > 101) Qty: 0 0RF
furosemide 20 mg Tablet
60 mg PO DAILY Qty: 90 0RF
benzonatate 100 mg Capsule
200 mg PO TIDPRN PRN (Reason: cough) Qty: 30 0RF
cephalexin 500 mg capsule
500 mg PO TID Qty: 21 0RF
amiodarone [Pacerone] 200 mg Tablet
200 mg PO DAILY Qty: 30 0RF
Continued
fluoxetine 20 MG capsule
40 mg PO DAILY
Eliquis 5 mg Tablet
5 mg PO BID
ferrous sulfate [FeroSul] 325 MG tablet
325 mg PO DAILY Qty: 1 0RF
metoprolol tartrate 25 mg Tablet
25 mg PO BID
multivit with min-folic acid [Multivitamin Gummies] 200 mcg Tablet,Chewable
2 tab PO DAILY
albuterol sulfate 90 mcg/actuation Hfa Aerosol Inhaler
2 puff INHALATION Q6H PRN (Reason: SOB/Wheezing)
Discontinued
furosemide 20 mg Tablet
40 mg PO DAILY
Discharge Orders:
Discharge Patient (As Directed); Ordered 01/11/24
Ordered By: Shante Mccann
Care Plan Goals
Care Plan Goals:
Problem: Readiness for enhanced knowledge related to diagnosis and treatment plan
Goal: Understand your diagnosis and treatment plan needs, including medications if applicable.
Instructions: Know your diagnosis, underlying causes and treatment plan options, including medications if applicable. Consult with your health care team to learn about your diagnosis and treatment plan, including medications if applicable.
Discharge Date and Time
Discharge Date/Time: 01/11/24 12:30
Print Language: TAJIK
== END 2024-01-11 12:30 | disposition home or self-care (01) | DRG 308 ==
LOC: IVU 09:22
PROVIDERS: Emergency Medicine; ADMITTING PHYSICIAN Hospitalist; ATTENDING PHYSICIAN Internal Medicine; CONSULT PHYSICIAN Internal Medicine Cardiovascular Disease; EMERGENCY PHYSICIAN Emergency Medicine; FAMILY PHYSICIAN Family Medicine
DX: I47.19 Other supraventricular tachycardia (principal); I50.33 Acute on chronic diastolic (congestive) heart failure; J18.9 Pneumonia, unspecified organism; I11.0 Hypertensive heart disease with heart failure; I48.0 Paroxysmal atrial fibrillation; I34.0 Nonrheumatic mitral (valve) insufficiency; D50.9 Iron deficiency anemia, unspecified; R09.89 Other specified symptoms and signs involving the circulatory and respiratory systems; D72.819 Decreased white blood cell count, unspecified; I25.10 Atherosclerotic heart disease of native coronary artery without angina pectoris; R91.1 Solitary pulmonary nodule; E87.6 Hypokalemia; F41.9 Anxiety disorder, unspecified; R73.9 Hyperglycemia, unspecified; Z11.52 Encounter for screening for COVID-19; Z87.891 Personal history of nicotine dependence; Z79.01 Long term (current) use of anticoagulants
CPT/HCPCS: 71046; 80048; 80053; 83036; 83735; 83880; 84443; 84484; 85025; 85027; 87502; 87811; 93005; 93306; 96374; 96376; 99284

== ENCOUNTER 2024-02-02 19:40 | Emergency (ER) | payer OTHER, SELFPAY ==
[2024-02-02 19:43] VITALS: BP 122/81
--- NOTE | 2024-02-02 20:34 | ED.GENMED ---
History of Present Illness
<Merissa Crane PA-C - Last Filed: 02/03/24 02:40>
General
Chief Complaint: Chest Pain
Source: patient
Exam Limitations: none
Time Seen by Provider: 02/02/24 20:32
Nursing documentation reviewed up to this point in time: agreed with
Travel History
Have you had any contact with someone who has COVID-19?: No
Do you have any symptoms of coronavirus? Fever > 100 degrees, chills, cough, shortness of breath, sore throat, loss of taste or smell, muscle aches, or headache?: No
History of Present Illness
History of Present Illness:
63-year-old female with past medical history of A-fib on Eliquis, CHF, SVT presenting emergency department today with chest pain starting at 6:30 PM. Patient states that she felt the pain along her bra line and this pain radiates through her chest
to the back. Patient thought it was her bra that she took the bra off and still had pain. Patient states that this pain subsided and then she had a snack to eat and she had pain return. Patient denies any shortness of breath, any cough or
cold-like symptoms, any fevers or chills, any paresthesias in her extremities. Patient scribes her pain is constant 6 out of 10 in severity, does not get worse with the cold exertion, is not pleuritic, is non-positional. Patient has a history of
mitral valve repair however has no history of coronary stent placement or bypass. Patient denies palpitations, lower extremity pain or swelling. Patient follows with Dr. Hendricks for cardiology.
Past History
<Merissa Crane PA-C - Last Filed: 02/03/24 02:40>
Past History
ED Past Medical History: Arrthythmia (Paroxysmal atrial fibrillation), CHF (Chronic diastolic CHF), HTN, Valvular disease (Mitral valve regurgitation-status post mitral valve repair March 2022), Psychiatric (Anxiety), Other (Right upper lobe lung
nodule 1.8 cm) and Other (Iron deficiency anemia)
ED Past Surgical History: Cardiac (Mitral valve regurgitation repair March 2022. A-fib cardioversion September 2022 ) and Cholecystectomy
Social History
Tobacco: Non-smoker
Alcohol: None
Drug: None
Personal: Single
Living: with family
Employment: Employed ([employer])
Family History
Family History: Other (Noncontributory); Negative Early CAD
Review of Systems
<Merissa Crane PA-C - Last Filed: 02/03/24 02:40>
Review of Systems
All Other Systems: ROS reviewed and negative except as documented in HPI and ROS
Phy Exam
<Merissa Crane PA-C - Last Filed: 02/03/24 02:40>
Physical Exam
Physical Exam:
Vitals: Vital signs are stable.
General: Patient is well appearing and in no acute distress; non-toxic
Skin: Warm and dry, no rashes or lesions
Head: Normocephalic, atraumatic
Eyes: Sclera non-icteric. EOMs intact. PERRLA.
Cardiac: Regular rate and rhythm, no murmurs. No tenderness to palpation of the external chest wall.
Peripheral Vascular: No lower extremity swelling or edema. 2+ dorsalis pedis pulses bilaterally. 2+ radial pulses bilaterally.
Pulm: Normal respiratory effort, no wheezes, rales, or rhonchi.
Abdomen: No abdominal tenderness, no palpable abdominal masses. No pulsatile abdominal mass.
Neuro: CN II-XII intact, no focal neurologic deficits.
Psychiatric: Appropriate mood and affect.
Scores
<Merissa Crane PA-C - Last Filed: 02/03/24 02:40>
Heart Score for Chest Pain Patients
STEMI patient?: No
History: Slightly or Non-Suspicious
ECG: Nonspecific Repolarization
Age: >45 - <65 years
Risk Factors: 1 or 2 Risk Factors
Troponin: </= Normal Limit
Heart Score for Chest Pain Patients: 3
Heart Score Risk: 2.5% MACE over next 6 weeks
Course
Florenciolt;Merissa Crane PA-C - Last Filed: 02/03/24 02:40>
Orders/Labs/Results
Orders:
Orders
02/02/24 19:42
Electrocardiogram (*1) Urgent
Reason for Study: Chest Pain
EKG- Treatment ONCE
02/02/24 20:43
Complete Blood Count/With Diff Urgent
02/02/24 20:44
Basic Metabolic Panel Urgent
Lipase Urgent
Troponin I Urgent
02/02/24 20:50
CR Chest - 2 Views Urgent
Comment:
Reason For Exam: chest pain
02/02/24 20:53
Add On- LAB Urgent
Tests Added?: lipase
02/02/24 20:54
Add On- LAB Urgent
Tests Added?: troponin
02/02/24 22:40
Electrocardiogram (*1) Urgent
Reason for Study: Chest Pain
Comprehensive Metabolic Panel Urgent
Troponin I Urgent
Abnormal Lab Results
02/02/24 02/02/24 02/02/24
20:43 20:44 22:40
WBC 2.9 L 10^3/uL
(4.8-10.8)
RBC 4.17 L 10^6/uL
(4.20-5.40)
Hct 35.3 L %
(37.0-47.0)
RDW 14.8 H %
(11.5-14.5)
Absolute Lymphs (auto) 0.9 L 10^3/uL
(1.2-3.4)
Monocytes % 9.6 H %
(1.7-9.3)
Potassium 3.2 L mmol/L
(3.5-5.1)
Carbon Dioxide 31 H mmol/L
(22-30)
BUN 26 H mg/dl 28 H mg/dl
(7-17) (7-17)
Glucose 148 H mg/dl 162 H mg/dl
(70-99) (70-99)
AST 439 H U/L
(14-36)
ALT 242 H U/L
(0-35)
Alkaline Phosphatase 153 H U/L
(38-126)
02/02/24 20:43
02/02/24 22:40
Vital Signs
Initial and Last Documented VS:
Initial Vital Signs
Temp Pulse Resp BP Pulse Ox
98.2 F 69 15 122/81 98
02/02/24 19:43 02/02/24 19:43 02/02/24 19:43 02/02/24 19:43 02/02/24 19:43
Last Documented Vital Signs
Temp Pulse Resp BP Pulse Ox
98.2 F 62 19 105/59 93
02/02/24 19:43 02/02/24 23:45 02/02/24 23:45 02/02/24 23:00 02/02/24 23:45
<Yobani Ngo, DO - Last Filed: 02/02/24 22:25>
Orders/Labs/Results
Orders:
Orders
02/02/24 19:42
Electrocardiogram (*1) Urgent
Reason for Study: Chest Pain
EKG- Treatment ONCE
02/02/24 20:43
Complete Blood Count/With Diff Urgent
02/02/24 20:44
Basic Metabolic Panel Urgent
Lipase Urgent
Troponin I Urgent
02/02/24 20:50
CR Chest - 2 Views Urgent
Comment:
Reason For Exam: chest pain
02/02/24 20:53
Add On- LAB Urgent
Tests Added?: lipase
02/02/24 20:54
Add On- LAB Urgent
Tests Added?: troponin
02/02/24 22:40
Electrocardiogram (*1) Urgent
Reason for Study: Chest Pain
Comprehensive Metabolic Panel Urgent
Troponin I Urgent
Abnormal Lab Results
02/02/24 02/02/24 02/02/24
20:43 20:44 22:40
WBC 2.9 L 10^3/uL
(4.8-10.8)
RBC 4.17 L 10^6/uL
(4.20-5.40)
Hct 35.3 L %
(37.0-47.0)
RDW 14.8 H %
(11.5-14.5)
Absolute Lymphs (auto) 0.9 L 10^3/uL
(1.2-3.4)
Monocytes % 9.6 H %
(1.7-9.3)
Potassium 3.2 L mmol/L
(3.5-5.1)
Carbon Dioxide 31 H mmol/L
(22-30)
BUN 26 H mg/dl 28 H mg/dl
(7-17) (7-17)
Glucose 148 H mg/dl 162 H mg/dl
(70-99) (70-99)
AST 439 H U/L
(14-36)
ALT 242 H U/L
(0-35)
Alkaline Phosphatase 153 H U/L
(38-126)
02/02/24 20:43
02/02/24 22:40
Vital Signs
Initial and Last Documented VS:
Initial Vital Signs
Temp Pulse Resp BP Pulse Ox
98.2 F 69 15 122/81 98
02/02/24 19:43 02/02/24 19:43 02/02/24 19:43 02/02/24 19:43 02/02/24 19:43
Last Documented Vital Signs
Temp Pulse Resp BP Pulse Ox
98.2 F 62 19 105/59 93
02/02/24 19:43 02/02/24 23:45 02/02/24 23:45 02/02/24 23:00 02/02/24 23:45
<Merissa Crane PA-C - Last Filed: 02/03/24 02:40>
MDM/Problems Addressed
Differential Diagnosis Includes:
Nodules include GERD, esophagitis, ACS, aortic dissection, PE, pneumothorax, costochondritis, musculoskeletal sprain/
MDM/Problems Addressed:
Chest pain
Chronic conditions affecting care:
CHF on Lasix, A-fib on Eliquis, history of SVT, history of mitral valve repair, history of smoking, chronic anemia
<Merissa Crane PA-C - Last Filed: 02/03/24 02:40>
*Radiology
Radiology exam reviewed: preliminary read by ED provider (no acute cardiopulmonary abnormality)
*Pulse Oximetry
Patient hypoxic: no
*EKG
Interpreted by ED Provider?: Yes
EKG Intrepretation Date: 02/02/24
Interpretation: normal
Heart Rate: 63
Rate: normal
Rhythm: sinus
[place]: left axis deviation
QRS Pattern: normal QRS
Ischemia: non-specific ST changes
*Critical Care Note
Total Time (30-74mins, 75-104mins- exclusive of procedures): Not Applicable
Data Reviewed
Review of Other/Old Records Reveals: Records (Reviewed ER physician documentation from 01/05/2024 where patient was seen for shortness of breath found to have pneumonia) and Discharge Summary (Reviewed discharge summary from 01/11/2024)
<BEN Juarez Last Filed: 02/03/24 02:40>
Patient Management
Escalation/DeEscalation of care consider admission/obs:
63-year-old female with past medical history of A-fib on Eliquis, CHF, SVT presenting emergency department today with chest pain starting at 6:30 PM. Patient states that she had the pain started while driving and then resolved and then started
again when she had a snack. Here in the emergency department, she is well-appearing and her vitals are stable. Her CBC is unremarkable and her CMP demonstrates elevation in her LFTs. Her EKG demonstrates nonischemic changes and her initial
troponin is in the normal range. Her repeat EKG demonstrates no changes and her repeat troponin is again within normal limits. Reevaluation, patient's symptoms have resolved and she no longer has any chest pain. Her chest x-ray demonstrates no
acute cardiopulmonary disease. Patient is stable for discharge, patient will be discharged with [facility] chest pain hotline and patient encouraged to continue to monitor her symptoms. All patient's questions answered
ED Attending Note
<Merissa Crane PA-C - Last Filed: 02/03/24 02:40>
-
Portions of this chart may have been created with voice recognition software.� Occasional wrong word or��sound alike� substitutions may have occurred due to the inherent limitations of voice recognition software.
<Yobani Ngo DO - Last Filed: 02/02/24 22:25>
ED Attending Note
Patient seen and examined by attending physician: Yes
I performed the substantive portion of visit, reviewed & personally made and approve the management plan that is documented in note by myself or CATHIE.: Yes
ED Attending Note:
I have seen and evaluated the patient with a [id number] encounter. I have spoken to the advance practicer provider and involved in the medical history, the physical exam, medical decision making.
Evaluation and management service: agree unless noted differently below.
Results interpretation: agree unless noted differently below.
Focused HPI: 63-year-old female presenting with chest pain at rest. This occurred a few hours ago while she was in the car. She initially thought it was her bra. Symptoms did resolve after she took her bra off but they returned even without the
bra on. On arrival, patient still having chest pain but EKG nonischemic. Patient states that she walked yesterday for 40 minutes with no chest pain
Physical exam: Sitting bed comfortably. Sinus rhythm, lungs clear
Medical Decision Making: While in the emergency department, her chest pain dissipated on its own. Initial troponin negative. Will repeat troponin and make cardiology follow-up if negative
Discharge Plan
Departure
Patient Disposition: Home (Routine Discharge)
Date of Disposition: 02/02/24
Time of Disposition: 23:53
Patient with high blood pressure during this ER visit?: No
Condition: Good
Discharge Problem:
Chest pain
Instructions: Chest Pain DCA Follow Up, BLOOD PRESSURE
Prescriptions:
No Action
fluoxetine 20 MG capsule
40 mg PO DAILY
Eliquis 5 mg Tablet
5 mg PO BID
ferrous sulfate [FeroSul] 325 MG tablet
325 mg PO DAILY Qty: 1 0RF
metoprolol tartrate 25 mg Tablet
25 mg PO BID
multivit with min-folic acid [Multivitamin Gummies] 200 mcg Tablet,Chewable
2 tab PO DAILY
albuterol sulfate 90 mcg/actuation Hfa Aerosol Inhaler
2 puff INHALATION Q6H PRN (Reason: SOB/Wheezing)
diltiazem HCl [Cartia XT] 120 mg Capsule,Extended Release 24hr
120 mg PO BID Qty: 60 0RF
acetaminophen 325 mg Tablet
650 mg PO Q4HPRN PRN (Reason: Mild Pain / Temp > 101) Qty: 0 0RF
furosemide 20 mg Tablet
60 mg PO DAILY Qty: 90 0RF
benzonatate 100 mg Capsule
200 mg PO TIDPRN PRN (Reason: cough) Qty: 30 0RF
cephalexin 500 mg capsule
500 mg PO TID Qty: 21 0RF
amiodarone [Pacerone] 200 mg Tablet
200 mg PO DAILY Qty: 30 0RF
Referrals:
Divina Bowden MD [Family Provider] -
Activity Restrictions/Additional Instructions:
Your chest x-ray today was negative for any acute cardiopulmonary problems.
You should receive a call tomorrow or in the coming days to set up a follow-up appointment with your taker off drying kiln. Please also follow up with your primary care provider,
PLEASE RETURN TO THE EMERGENCY DEPARTMENT SHOULD YOU EXPERIENCE A RETURN OF YOUR SYMPTOMS, ACUTE WORSENING, SHORTNESS OF BREATH, SYNCOPAL EPISODES, LEG SWELLING, CONFUSION, SLURRING OF SPEECH, FEVERS OR CHILLS, LIGHTHEADEDNESS, DIZZINESS,
INTRACTABLE VOMITING, OR ANY OTHER CONCERNS.
Interventions
Interventions:
*Risk Screen - Suicide Last Done: 02/02/24 19:43
*General Assessment Last Done: 02/02/24 19:43
*Neglect/Abuse Screening Last Done: 02/02/24 19:43
ED- Fall Risk Assessment Last Done: 02/02/24 22:26
*ED COVID-19 Vaccine History Last Done: 02/02/24 22:26
*Nursing Disposition Last Done: 02/03/24 00:04
ED- Cardiac Assessment Last Done: 02/02/24 20:40
Discharge Date and Time
Discharge Date/Time: 02/03/24 00:04
Print Language: JAPANESE
[2024-02-02 21:02] LABS: % Basophils 0.7 % (0-2); % Eosinophils 2.7 % (0-6); % Immature Granulocytes 0.3 % (0-0.5); % Monocytes 9.6 % (1.7-9.3); % Neutrophils 57.7 % (42.2-75.2); Absolute Eosinophils 0.1 10^3/uL (0-0.7); Absolute Lymphocytes 0.9 10^3/uL (1.2-3.4); Absolute Monocytes 0.3 10^3/uL (0.1-0.6); Absolute Neutrophils 1.7 10^3/uL (1.4-6.5); Hematocrit 35.3 % (37.0-47.0); Hemoglobin 12.3 g/dL (12.0-16.0); Mean Corp Hgb Conc. 34.8 g/dL (33.0-37.0); Mean Corpuscular Hgb 29.5 pg (27.0-31.0); Mean Corpuscular Volume 84.7 fL (81.0-99.0); Mean Platelet Volume 9.3 fL (7.4-10.4); Nucleated Red Blood Cells % 0 %; Platelet Count 146 10^3/uL (130-400); Red Blood Cell Count 4.17 10^6/uL (4.20-5.40); Red Cell Dist. Width 14.8 % (11.5-14.5); White Blood Cell Count 2.9 10^3/uL (4.8-10.8)
[2024-02-02 21:21] LABS: Blood Urea Nitrogen 26 mg/dl (7-17); Calcium 9.4 mg/dl (8.4-10.2); Carbon Dioxide 31 mmol/L (22-30); Chloride 101 mmol/L (98-107); Glucose 148 mg/dl (70-99); Lipase 232 U/L (23-300); Sodium 141 mmol/L (135-145); eGFR > 60.00
[2024-02-02 21:26] LABS: Troponin I 0.018 ng/ml
[2024-02-02 21:47] VITALS: BP 108/59
[2024-02-02 22:00] VITALS: BP 106/59
[2024-02-02 23:00] VITALS: BP 105/59
[2024-02-02 23:06] LABS: ALT (SGPT) 242 U/L (0-35); AST (SGOT) 439 U/L (14-36); Albumin 3.9 g/dl (3.5-5.0); Blood Urea Nitrogen 28 mg/dl (7-17); Carbon Dioxide 29 mmol/L (22-30); Glucose 162 mg/dl (70-99); Potassium 3.2 mmol/L (3.5-5.1); Total Bilirubin 0.5 mg/dl (0.2-1.3); Total Protein 6.6 g/dl (6.3-8.2); eGFR > 60.00
[2024-02-02 23:20] LABS: Calcium 9.1 mg/dl (8.4-10.2); Chloride 102 mmol/L (98-107); Sodium 140 mmol/L (135-145)
[2024-02-02 23:37] LABS: Troponin I 0.015 ng/ml
[2024-02-03 00:05] LABS: Alkaline Phosphatase 153 U/L (38-126)
== END 2024-02-03 00:04 | disposition home or self-care (01) ==
LOC: EMR 19:40
PROVIDERS: Emergency Medicine; Physician Assistant; EMERGENCY PHYSICIAN Student in an Organized Health Care Education/Training Program; FAMILY PHYSICIAN Family Medicine
DX: R07.89 Other chest pain (principal); I48.91 Unspecified atrial fibrillation; I11.0 Hypertensive heart disease with heart failure; I50.32 Chronic diastolic (congestive) heart failure; F41.9 Anxiety disorder, unspecified; Z79.01 Long term (current) use of anticoagulants; Z86.79 Personal history of other diseases of the circulatory system; Z90.49 Acquired absence of other specified parts of digestive tract
CPT/HCPCS: 99283; 71046; 80048; 80053; 83690; 84484; 85025; 93005

== ENCOUNTER 2024-02-14 06:00 | Day surgery (SDC) | payer OTHER, SELFPAY ==
[2024-02-05 10:26] VITALS: BMI 26.5
[2024-02-05 10:56] LABS: % Basophils 0.9 % (0-2); % Eosinophils 5.4 % (0-6); % Lymphocytes 38.4 % (20.5-51.1); % Monocytes 11.6 % (1.7-9.3); % Neutrophils 43.7 % (42.2-75.2); Absolute Eosinophils 0.1 10^3/uL (0-0.7); Absolute Lymphocytes 0.9 10^3/uL (1.2-3.4); Absolute Monocytes 0.3 10^3/uL (0.1-0.6); Hematocrit 35.1 % (37.0-47.0); Hemoglobin 11.6 g/dL (12.0-16.0); Mean Corpuscular Hgb 28.9 pg (27.0-31.0); Mean Corpuscular Volume 87.3 fL (81.0-99.0); Nucleated Red Blood Cells % 0 %; Platelet Count 132 10^3/uL (130-400); Red Blood Cell Count 4.02 10^6/uL (4.20-5.40); Red Cell Dist. Width 14.9 % (11.5-14.5)
[2024-02-05 10:59] LABS: White Blood Cell Count 2.2 10^3/uL (4.8-10.8)
[2024-02-05 11:08] LABS: ALT (SGPT) 120 U/L (0-35); AST (SGOT) 54 U/L (14-36); Albumin 4.4 g/dl (3.5-5.0); Alkaline Phosphatase 114 U/L (38-126); Blood Urea Nitrogen 26 mg/dl (7-17); Calcium 9.3 mg/dl (8.4-10.2); Carbon Dioxide 33 mmol/L (22-30); Chloride 101 mmol/L (98-107); Estimated Creatinine Clearance 53 ml/min; Glucose 118 mg/dl (70-99); Magnesium 2.1 mg/dl (1.6-2.3); Sodium 141 mmol/L (135-145); Total Bilirubin 0.6 mg/dl (0.2-1.3); Total Protein 7.4 g/dl (6.3-8.2); eGFR > 60.00
[2024-02-05 11:10] LABS: INR 1.24; PT 15.4 Sec (11.4-14.6)
[2024-02-14] VITALS (14 sets, daily range): BP systolic 105–130; BP diastolic 62–79; BMI 26.5
[2024-02-14] MEDS: NSS 500 IV (07:01)
[2024-02-14 09:23] LABS: ACT-LR - POC 260 Seconds (116-155)
[2024-02-14 09:41] LABS: ACT-LR - POC 266 Seconds (116-155)
[2024-02-14 10:03] LABS: ACT-LR - POC 343 Seconds (116-155)
[2024-02-14 10:21] LABS: ACT-LR - POC 342 Seconds (116-155)
[2024-02-14 11:03] LABS: ACT-LR - POC 360 Seconds (116-155)
[2024-02-14 12:07] LABS: ACT-LR - POC 133 Seconds (116-155)
[2024-02-14] MEDS: TYLENOL 650 MG PO ×2 (12:51→16:48)
[2024-02-14] MEDS: ANESTHETIC LOZENGE 1 LOZENGE PO (12:51)
[2024-02-14 15:31] LABS: ACT-LR - POC > 397 Seconds (116-155)
[2024-02-14 15:31] LABS: ACT-LR - POC > 397 Seconds (116-155)
--- NOTE | 2024-02-14 17:53 | ITS.CL.ABL ---
Equity Director - Ablation
Ablation
Procedure Report:
Primary Physician: Divina Bowden MD
Primary Tower Director: Santiago Cardozo MD
Procedure Date: 02/14/2024
Procedure
Electrophysiology Study with Ectopic Atrial/AT ablation
Left atrial recording / pacing
IV drug for arrhythmia induction
Patient History
Patient is a pleasant 63-year-old female with a past medical history significant for heart failure with preserved ejection fraction, nonrheumatic mitral valve insufficiency status post repair, paroxysmal atrial fibrillation status post Alexandre-Maze,
paroxysmal supraventricular tachycardia (long RP tachycardia) on beta-eladia, calcium channel eladia, and amiodarone.
Method
After informed consent was obtained, the patient was brought to the EP lab in a post-absorptive, non-sedated state. A peripheral IV was in place. Continuous electrocardiography, blood pressure and pulse oximetry monitoring was initiated and
cardioversion / defibrillator electrodes were positioned on the chest in an AP orientation. A 'time-out' was called. General anesthesia was administered with the assistance of the anesthesia services, and local anesthesia was given at the femoral
vein access sites.
Using modified Seldinger technique, vascular access was achieved and sheaths were placed. Multipolar catheters were advanced to the coronary sinus, His bundle recording position, right ventricle, and high right atrium. Following the determination
of baseline conduction intervals, comprehensive EP study was performed. Pacing and recording from the RA, RV, HBE, and CS / LA was performed.
For arrhythmia details, see below.
Total RF time:
7 min 16s
Estimated Blood Loss
5-10 mL
Complications
None
At the end of the procedure, all catheters and sheaths were removed and hemostasis was assured with figure of 8 suture and manual pressure. Protamine was used for reversal. The patient was returned to the recovery area in stable condition.
Access Sites:
Left Femoral Vein: 2 sheaths (7 Fr, 6 Fr)
Right Femoral Vein: 2 sheaths (8 Fr upsized to 11.5 Fr, 9 Fr upsized to a 10 Fr)
Baseline Intervals:
Rhythm: SR
IN: 202 ms
AH: 118 ms
HV: 63 ms
QRS: 117 ms
QT: 497 ms
Post-Procedure Intervals:
IN: 175 ms
AH: 81 ms
HV: 60 ms
QRS: 111 ms
QT: 480 ms
AV Conduction:
- AVWB at 530 msec pre ablation and 540 ms post ablation
- No VA conduction
Refractory Periods
- ANERP 600/310 ms
Procedure Synopsis:
The patient entered the room in sinus rhythm. Patient spontaneous initiate an ectopic atrial rhythm at 80-90 bpm which, when compared to tachycardia ECG, demonstrated identical p-wave morphology. Catheters were advanced into the HRA, CS, HIS
position, and RV as mentioned. Baseline EP study performed which demonstrated no VA conduction. Attempts at entrainment from V and A were unsuccessful with the ectopic atrial rhythm. If terminated, the rhythm was easily induced with proximal CS
pacing. The RV catheter was removed and heparin was given as bolus to maintain ACT 300-400. Grid catheter was advanced into the RA and the ectopic rhythm was mapped localized to the anterior fossa/septal wall. Visualized on ICE at the crux between
RA, LA, and NCC. PPI-TCL in lateral RA > 100 ms. On electroanatomic mapping with HD grid at point of earliest activation, the EGM was 'pre-p-wave', 34 ms early with a QS unipolar pattern. Additional mapping was performed to identify and carrie HIS
activation signal on EGM with HD grid catheter. Earliest activation was posterior/superior to this HIS region.The RV catheter was removed from the 9 fr and exchanged for a 10fr sheath. Intracardiac ultrasound (ICE) was carefully advanced into the
right atrium to guide sheath placement over a J-wire, catheter placement, guide trans-septal puncture, identify potential complications, identify anatomic structures and ensure proper contact between ablation catheter and tissue. Given prior history
of maze and location of this focus, transseptal was performed and LA map was performed. For transseptal, trans-septal access was performed under ICE guidance. The trans-septal puncture was performed with a SafeSept wire through a [employer]
needle assembly through the steerable sheath. The wire was visualized as it entered the LSPV and system advanced under ICE guidance and fluoroscopy into the LA. The [employer] needle assembly, SafeSept wire and sheath dilator were removed under
negative pressure. LA pressure was measured and recorded. Low voltage demonstrated at the posterior wall and pulmonary veins. Entrance/exit block confirmed with each vein. At location close to RA focus within the LA, earliest point was later than RA
(-20ms). Pacing from the LA during tachycardia also demonstrated PPI-TCL >100 and manifest activation. The HD grid catheter was removed from the steerable sheath and the sheath was returned to the RA. A [employer] SE DF 3.5mm irrigated RF catheter
was advanced into the RA. Under EGM, fluoroscopic, and ICE guidance, RF was performed at the area of earliest activation and with no evidence of HIS activation at 20W with careful monitoring of impedance, temperature, and AV conduction. Following
ablation, ectopic atrial rhythm was no longer inducible with pacing, with pacing and isoproterenol, and during washout. No other arrhythmia was inducible. Catheter and sheaths were removed and post-ablation ICE imaging was consistent with pre-ICE
imaging without evidence of effusion. Hemostasis achieved with figure of 8 sutures and manual pressure. Protamine used for reversal.
Recommendations
- Monitor in holding, anticipate same day discharge if clinically stable
- Bedrest with straight-leg precautions 4 hours
- Continue home medications as indicated
- Resume eliquis tonight if groins and patient stable
- Discontinue amiodarone in 1 mo
- Continue diltiazem, metoprolol; consider reduction at next office visit
Rudy Perez,
Clinical Cardiac Electrophysiology
cc: Divina Bowden MD; Santiago Cardozo MD
== END 2024-02-14 17:00 | disposition home or self-care (01) ==
LOC: CATH 06:00
PROVIDERS: ATTENDING PHYSICIAN Internal Medicine Cardiovascular Disease; FAMILY PHYSICIAN Family Medicine; OTHER PHYSICIAN Internal Medicine Cardiovascular Disease
DX: I47.10 Supraventricular tachycardia, unspecified (principal); I11.0 Hypertensive heart disease with heart failure; I50.32 Chronic diastolic (congestive) heart failure; I48.0 Paroxysmal atrial fibrillation; I34.0 Nonrheumatic mitral (valve) insufficiency; Z82.49 Family history of ischemic heart disease and other diseases of the circulatory system; Z87.891 Personal history of nicotine dependence; Z79.01 Long term (current) use of anticoagulants
CPT/HCPCS: 93662; C1732; C1730; C1894; C1766; C2630; 36415; 75572; 76937; 80053; 83735; 85025; 85347; 85610; 86850; 86900; 86901; 93005; 93462; 93623; 93653; C1759; C1892; Q9967

== ENCOUNTER → 2024-02-28 14:40 | Outpatient (REF) | payer OTHER, SELFPAY | LOC: HWRAD 14:40 | PROVIDERS: ATTENDING PHYSICIAN Family Medicine | DX: R79.89 Other specified abnormal findings of blood chemistry (principal) | CPT/HCPCS: 76700 ==